=== PATIENT | male | born 1945 | race African-American/Black ===

== ENCOUNTER 2018-03-21 20:47 | Emergency (ER) | payer MEDICARE, SELFPAY ==
[2018-03-21 20:49] VITALS: BP 173/78; PULSE 77; RESP 14; TEMP 36.6; O2SAT 99; BMI 22.1
[2018-03-21] MEDS: Cephalexin 250 MG Capsule 500 MG PO (22:26)
--- NOTE | 2018-03-21 22:26 | ED.DCSUM_ITS ---
- ER Visit Summary Date of Service: 03/21/18 Chief Complaint: [] Swelling in the right and left ankle and feet History of Present Illness: The patient is a 72 M has chronic edema in his lower extremities with significant dry skin. Of last couple weeks his skin is cracked and he said some seepage. He thinks it might be infected. He has been using peroxide Epson salts an unknown cream. He is on hydrochlorothiazide to try to help with chronic lower extremity edema. No redness warmth or pain. Initially was itching so he itched it open. Physical Examination: Vital signs reviewed General: Well-nourished well-developed Head: Normocephalic atraumatic Eyes: Pupils equal round and reactive to light extraocular movements intact ENT: TMs clear no hemotympanum no trauma Neck: Nontender full range of motion Cardiovascular: Regular rate rhythm no murmurs normal S1-S2 Respiratory: No distress clear to auscultation bilaterally chest nontender Abdomen: Soft nontender nondistended normal bowel sounds no masses Back: Nontender no CVA tenderness Extremities: Her lower ankle showed creatinine skin is dry with some mild physiologic seepage. There is no significant cellulitis or infection of the skin. He has 1-2+ edema. Neuro alert oriented cranial nerves II through XII intact normal strength sensation reflexes Test Results: [] Emergency Department Course and Treatment: [] will cover the patient with topical bacitracin and oral back bacitracin topical and a dressing was applied. Given oral Keflex as he does have some suspected early superficial infection. No cellulitis however. He will continue Bactroban and Keflex at home. Will follow-up as an outpatient. He will double up on his water pill raise his legs at night. Treatment Plan: [] Disposition: [] Impression: [] Bilateral cracked skin of the ankles and feet with drainage Bilateral ankle edema This note was generated with [employer] dictation software. It may contain incorrect words, spelling, and punctuation that were not noted in review of the chart prior to signing ED Disposition - Plan for ED Patient: Chief Complaint: Wound Referrals: Toby Roche MD [Primary Care Provider] -
--- NOTE | 2018-03-21 22:26 | ED.DEP ---
ED Disposition - Plan for ED Patient: Disposition: Home or Assisted Living Chief Complaint: Wound Instructions: ED Leg Swelling Bilateral Prescriptions: Cephalexin [Keflex] 500 mg PO TID #21 cap Mupirocin [Bactroban] 1 applic TOPICAL TID 15 Days #1 tube Referrals: Toby Roche MD [Primary Care Provider] -
[2018-03-21 22:28] VITALS: BP 176/80; PULSE 98; RESP 16; O2SAT 96
== END 2018-03-21 22:48 | disposition home or self-care (01) ==
LOC: ED 22:32
PROVIDERS: Emergency Provider Emergency Medicine; Family Provider Internal Medicine; PCP Internal Medicine
DX: R23.4 Changes in skin texture (principal); M25.471 Effusion, right ankle; M25.472 Effusion, left ankle; I44.7 Left bundle-branch block, unspecified; Z85.46 Personal history of malignant neoplasm of prostate; Z86.2 Personal history of diseases of the blood and blood-forming organs and certain disorders involving the immune mechanism; Z90.49 Acquired absence of other specified parts of digestive tract; Z79.899 Other long term (current) drug therapy
CPT/HCPCS: 99283

== ENCOUNTER 2018-04-01 12:21 | Outpatient (RCR) | payer MEDICARE, SELFPAY ==
[2018-04-01 12:42] VITALS: BP 153/87; PULSE 84; RESP 16; TEMP 36.4
--- NOTE | 2018-04-01 18:40 | PCM.WC.HP ---
(1) Bilateral lower extremity edema Status: Acute Current Visit: Yes Code(s): R60.0 - Localized edema History of Present Illness Date of Service: 04/01/18 Chief Complaint: Bilateral lower extremity edemawith seepage. History of Wound: Mr. Stroud presented here due to lower extremity wounds/drainage. He has a history of chronic lower extremity edema and very significant dry skin and was in his stable state of health until about a week prior to presentation when he noted increased drainage from his lower extremities. He was seen at the [facility] emergency room and managed as a case of possible superficial infection. He has had his lower extremities wrapped in gauze however on presentation to the wound center today there was no obvious wound. He does attest to scratching a lot due to his dry skin. He feels well otherwise and denies chills, fever or otherwise feeling of unwell. Past Medical History Allergies/Adverse Reactions: Allergies Sulfa (Sulfonamide Antibiotics) Allergy (Verified 04/01/18 13:15) Rash Home Medications: Ambulatory Orders Medication Instructions Recorded Amlodipine [Norvasc] 5 mg PO DAILY 04/28/17 Doxazosin Mesylate [Cardura] 2 mg PO QHS 06/15/17 Fluticasone 0.05% [Flonase Nasal 2 spray NASAL DAILY 06/15/17 [place]] Hydrochlorothiazide [Hctz] 25 mg PO DAILY 06/15/17 Leuprolide Acetate [Lupron Depot] 30 mg IM QMONTH 06/15/17 Tamsulosin HCl [Flomax] 0.4 mg PO DAILY #30 capsule 06/24/17 predniSONE tablet 20 mg PO BIDCM #6 tablet 06/28/17 Mupirocin [Bactroban] 1 applic TOPICAL TID 15 Days #1 03/21/18 tube - Family History Maternal No pertinent history Smoking Status: Current every day smoker Review of Systems Constitutional: Denies: Anorexia, Chills, Fever, Malaise, Weakness HEENT: Denies: Difficulty Hearing, Difficulty Swallowing Cardiovascular: Denies: Chest Pain, Chest Tightness Respiratory: Denies: Cough, Hemoptysis Gastrointestinal: Denies: Abdominal Pain, Hematemesis, Vomiting Skin: Reports: Dryness. Denies: Jaundice - Physical Exam Vital Signs Temp Pulse Resp BP 97.5 F L 84 16 153/87 H 04/01/18 12:42 04/01/18 12:42 04/01/18 12:42 04/01/18 12:42 General: Alert, Oriented x3, Cooperative, No apparent distress HEENT: Atraumatic, Normocephalic Oral: Moist Mucosa Neck: Supple Lungs: Normal air movement Cardiovascular: Normal S1, Normal S2 Abdomen: Soft, Non Tender Extremities: No cyanosis, Edema Skin: Rash Present, Excoriated Wound Measurements and Assessment WC - Nurse 1 - General Ulcer Measurement Start: 04/01/18 12:42 Freq: Status: Active Protocol: Activity Type Activity Date Activity User E-Sign Co-Sign Detail Recorded Client Recorded Date Recorded By Document 04/01/18 12:42 [facility] [id number] 04/01/18 13:02 [facility] 04/01/18 12:42 Wound Center Nurse 1 [Edema Assessment] -Lower Limb Edema Present Yes -Right Calf (cm) 39.4 -Right Ankle (cm) 23.1 -Left Calf (cm) 39.5 -Left Ankle (cm) 23 WC - Nurse 2 - General Ulcer CM Notes Start: 04/01/18 12:42 Freq: Status: Active Protocol: Activity Type Activity Date Activity User E-Sign Co-Sign Detail Recorded Client Recorded Date Recorded By Document 04/01/18 13:38 DV [id number] 04/01/18 13:39 DV 04/01/18 13:38 Pain Scale: 0-10 Numeric [Pain] -Is Patient Pain Free? Yes Musculoskeletal: No Muscle Wasting Neurological: Cranial nerves II-XII grossly intact Psych/Mental Status: Normal Affect Debridement Note Post-Debridement Measurements/Treatment WC - Nurse 2 - General Ulcer CM Notes Start: 04/01/18 12:42 Freq: Status: Active Protocol: Activity Type Activity Date Activity User E-Sign Co-Sign Detail Recorded Client Recorded Date Recorded By Document 04/01/18 13:38 DV [id number] 04/01/18 13:39 DV 04/01/18 13:38 Pain Scale: 0-10 Numeric Is Patient Pain Free? Yes No debridement was completed today Assessment/Plan Active Problems Bilateral lower extremity edema (Acute) Assessment: Bilateral lower extremity edema. Severe Xeroderma Plan: Mr Stroud has no open wounds at this time. Still has bilateral lower extremity swelling with some seepage. Also severe xeroderma. Mild superficial ulcer for which he presented to the ER most likely due to excoriation from dry skin. Advised to limit irritation of his skin. Adequate hydration on moisturizing also recommended. Advised to follow-up with his PCP/referral to a social worker delinquency prevention. Double layer Tubigrip for edema control. Elevate lower extremity when seated and in bed. Advised to call with any chronic open wounds. Discharged from the wound clinic. This note was generated with [employer] dictation software. It may contain incorrect words, spelling, and punctuation that were not noted in checking the note before signing.
--- NOTE | 2018-04-01 18:48 | HP.PCM_ITS ---
(1) Bilateral lower extremity edema Status: Acute Current Visit: Yes Code(s): R60.0 - Localized edema History of Present Illness Date of Service: 04/01/18 Chief Complaint: Bilateral lower extremity edemawith seepage. History of Wound: Mr. Stroud presented here due to lower extremity wounds/ drainage. He has a history of chronic lower extremity edema and very significant dry skin and was in his stable state of health until about a week prior to presentation when he noted increased drainage from his lower extremities. He was seen at the [facility] emergency room and managed as a case of possible superficial infection. He has had his lower extremities wrapped in gauze however on presentation to the wound center today there was no obvious wound. He does attest to scratching a lot due to his dry skin. He feels well otherwise and denies chills, fever or otherwise feeling of unwell. Past Medical History Allergies/Adverse Reactions: Allergies Sulfa (Sulfonamide Antibiotics) Allergy (Verified 04/01/18 13:15) Rash Home Medications: Ambulatory Orders Medication Instructions Recorded Amlodipine [Norvasc] 5 mg PO DAILY 04/28/17 Doxazosin Mesylate [Cardura] 2 mg PO QHS 06/15/17 Fluticasone 0.05% [Flonase Nasal 2 spray NASAL DAILY 06/15/17 [place]] Hydrochlorothiazide [Hctz] 25 mg PO DAILY 06/15/17 Leuprolide Acetate [Lupron Depot] 30 mg IM QMONTH 06/15/17 Tamsulosin HCl [Flomax] 0.4 mg PO DAILY #30 capsule 06/24/17 predniSONE tablet 20 mg PO BIDCM #6 tablet 06/28/17 Mupirocin [Bactroban] 1 applic TOPICAL TID 15 Days #1 03/21/18 tube - Family History Maternal No pertinent history Smoking Status: Current every day smoker Review of Systems Constitutional: Denies: Anorexia, Chills, Fever, Malaise, Weakness HEENT: Denies: Difficulty Hearing, Difficulty Swallowing Cardiovascular: Denies: Chest Pain, Chest Tightness Respiratory: Denies: Cough, Hemoptysis Gastrointestinal: Denies: Abdominal Pain, Hematemesis, Vomiting Skin: Reports: Dryness. Denies: Jaundice - Physical Exam Vital Signs Temp Pulse Resp BP 97.5 F L 84 16 153/87 H 04/01/18 12:42 04/01/18 12:42 04/01/18 12:42 04/01/18 12:42 General: Alert, Oriented x3, Cooperative, No apparent distress HEENT: Atraumatic, Normocephalic Oral: Moist Mucosa Neck: Supple Lungs: Normal air movement Cardiovascular: Normal S1, Normal S2 Abdomen: Soft, Non Tender Extremities: No cyanosis, Edema Skin: Rash Present, Excoriated Wound Measurements and Assessment WC - Nurse 1 - General Ulcer Measurement Start: 04/01/18 12:42 Freq: Status: Active Protocol: Activity Type Activity Date Activity User E-Sign Co-Sign Detail Recorded Client Recorded Date Recorded By Document 04/01/18 12:42 [facility] [id number] 04/01/18 13:02 [facility] 04/01/18 12:42 Wound Center Nurse 1 [Edema Assessment] -Lower Limb Edema Present Yes -Right Calf (cm) 39.4 -Right Ankle (cm) 23.1 -Left Calf (cm) 39.5 -Left Ankle (cm) 23 WC - Nurse 2 - General Ulcer CM Notes Start: 04/01/18 12:42 Freq: Status: Active Protocol: Activity Type Activity Date Activity User E-Sign Co-Sign Detail Recorded Client Recorded Date Recorded By Document 04/01/18 13:38 DV [id number] 04/01/18 13:39 DV 04/01/18 13:38 Pain Scale: 0-10 Numeric [Pain] -Is Patient Pain Free? Yes Musculoskeletal: No Muscle Wasting Neurological: Cranial nerves II-XII grossly intact Psych/Mental Status: Normal Affect Debridement Note Post-Debridement Measurements/Treatment WC - Nurse 2 - General Ulcer CM Notes Start: 04/01/18 12:42 Freq: Status: Active Protocol: Activity Type Activity Date Activity User E-Sign Co-Sign Detail Recorded Client Recorded Date Recorded By Document 04/01/18 13:38 DV [id number] 04/01/18 13:39 DV 04/01/18 13:38 Pain Scale: 0-10 Numeric Is Patient Pain Free? Yes No debridement was completed today Assessment/Plan Active Problems Bilateral lower extremity edema (Acute) Assessment: Bilateral lower extremity edema. Severe Xeroderma Plan: Mr Stroud has no open wounds at this time. Still has bilateral lower extremity swelling with some seepage. Also severe xeroderma. Mild superficial ulcer for which he presented to the ER most likely due to excoriation from dry skin. Advised to limit irritation of his skin. Adequate hydration on moisturizing also recommended. Advised to follow-up with his PCP/referral to a childbirth and infant care teacher. Double layer Tubigrip for edema control. Elevate lower extremity when seated and in bed. Advised to call with any chronic open wounds. Discharged from the wound clinic. This note was generated with [employer] dictation software. It may contain incorrect words, spelling, and punctuation that were not noted in checking the note before signing.
== END 2018-04-01 23:59 ==
LOC: WC 12:21
PROVIDERS: Family Provider Internal Medicine; PCP Internal Medicine; Visit Provider Internal Medicine
DX: R60.0 Localized edema (principal); F17.200 Nicotine dependence, unspecified, uncomplicated; Q80.9 Congenital ichthyosis, unspecified; M79.89 Other specified soft tissue disorders
CPT/HCPCS: 99213; G0463

== ENCOUNTER 2018-04-24 16:41 | Observation (INO) | payer MEDICARE, SELFPAY ==
[2018-04-24 16:42] VITALS: BP 161/78; PULSE 65; RESP 16; TEMP 36.8; O2SAT 100; BMI 20.7
--- NOTE | 2018-04-24 17:06 | ED.VISSUMM ---
- ER Visit Summary Date of Service: 04/24/18 Chief Complaint: Pain History of Present Illness: The patient is a 72 M with right hip pain. Symptoms started about 5 days ago. They have gotten worse. Denies any other pain. It does not radiate. He denies any injury or inciting events. He denies any associated symptoms like weakness, numbness, change in bowel or bladder, back pain. He never had this before. Pain is so severe, he is unable to ambulate. He took some BC Powder but it is not helping. Patient never had hip or back surgery. No history of infected joints. Physical Examination: Hypertensive but otherwise vital signs unremarkable. Afebrile. Alert and oriented. Head and neck atraumatic. Abdomen soft and nontender. Back unremarkable. Right hip is tender to palpation of the greater trochanter. No warmth or erythema noted. No rash to the hip area. No obvious deformity. He does have some symmetric peripheral edema, but he is neurovascularly intact distally. No shortening, but he does have some pain with range of motion. Test Results: X-rays pending. Emergency Department Course and Treatment: He was treated with [place] while awaiting results. X-rays were negative. CT was done and this was also negative. Pain is better, but he is still unable to ambulate. He will need admission because of this. Labs were performed and he was anemic, 10.6, BUN 19, creatinine 1.37. Urinalysis pending. Dr. Pope will admit Treatment Plan: As above Disposition: Admission Impression: 1. Right hip pain 2. Anemia This note was generated with [employer] dictation software. It may contain incorrect words, spelling, and punctuation that were not noted in review of the chart prior to signing ED Disposition - Plan for ED Patient: Disposition: Home or Assisted Living Chief Complaint: Lower Extremity Injury Referrals: Toby Roche MD [Primary Care Provider] -
--- NOTE | 2018-04-24 17:09 | ED.DCSUM_ITS ---
- ER Visit Summary Date of Service: 04/24/18 Chief Complaint: Pain History of Present Illness: The patient is a 72 M with right hip pain. Symptoms started about 5 days ago. They have gotten worse. Denies any other pain. It does not radiate. He denies any injury or inciting events. He denies any associated symptoms like weakness, numbness, change in bowel or bladder, back pain. He never had this before. Pain is so severe, he is unable to ambulate. He took some BC Powder but it is not helping. Patient never had hip or back surgery. No history of infected joints. Physical Examination: Hypertensive but otherwise vital signs unremarkable. Afebrile. Alert and oriented. Head and neck atraumatic. Abdomen soft and nontender. Back unremarkable. Right hip is tender to palpation of the greater trochanter. No warmth or erythema noted. No rash to the hip area. No obvious deformity. He does have some symmetric peripheral edema, but he is neurovascularly intact distally. No shortening, but he does have some pain with range of motion. Test Results: X-rays pending. Emergency Department Course and Treatment: He was treated with [place] while awaiting results. X-rays were negative. CT was done and this was also negative. Pain is better, but he is still unable to ambulate. He will need admission because of this. Labs were performed and he was anemic, 10.6, BUN 19, creatinine 1.37. Urinalysis pending. Dr. Pope will admit Treatment Plan: As above Disposition: Admission Impression: 1. Right hip pain 2. Anemia This note was generated with [employer] dictation software. It may contain incorrect words, spelling, and punctuation that were not noted in review of the chart prior to signing ED Disposition - Plan for ED Patient: Disposition: Home or Assisted Living Chief Complaint: Lower Extremity Injury Referrals: Toby Roche MD [Primary Care Provider] -
[2018-04-24] MEDS: HYDROcodone Bitartrate/Apap 5/325 Tablet PO (17:11)
--- NOTE | 2018-04-24 17:17 | RAD_ITS ---
STUDY: X-RAY - PELVIS AND RIGHT HIP REASON FOR EXAM: Male, 72 years old. Pain of the right hip. The TECHNIQUE: Radiological exam, hip, unilateral, with pelvis when performed; 2 or 3 views. COMPARISON: None. FINDINGS: There is a non-specific bowel gas pattern. Normal visualized soft tissue structures. Normal bilateral iliac wings, sacroiliac joints and visualized sacrum. Normal bilateral superior and inferior pubic rami. Normal pubic symphysis. Normal bilateral ischial tuberosities. Normal visualized femoral head. Normal acetabulum. There is mild articular joint space narrowing of the hip. RAD/Hip 2-3 Views with Pelvis IMPRESSION: Mild degenerative narrowing of the right hip without other acute bone or joint findings of the pelvis or hip. Electronically Signed: Galina Patel MD at 17:41 EDT , Service support ,
--- NOTE | 2018-04-24 18:02 | CT_ITS ---
STUDY: CT HIP WITHOUT CONTRAST: RIGHT REASON FOR EXAM: Male, 72 years old. Unable to walk secondary to right hip pain. RADIATION DOSAGE (If Supplied By Facility): CTDIvol = ( 17.08 ) mGy, DLP = ( 439.10 ) mGycm. Individualized dose optimization techniques were used for this CT.? TECHNIQUE: Transaxial imaging with sagittal and coronal reconstructions. COMPARISON: Right hip and pelvis films of April 24, 2018 FINDINGS: The included right hemipelvis is intact. The proximal femur is intact without a fracture, osteolytic or blastic bone lesion. Minimal marginal osteophytosis of the femoral head and mild joint narrowing. Negative for evidence of avascular necrosis or osteochondral irregularity. Negative for surrounding soft tissue or muscular abnormality other than moderate vascular calcifications. 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 Electronically Signed: Galina Patel MD at 18:57 EDT , Service support ,
[2018-04-24 18:36] LABS: Absolute Lymphocyte Count 0.69 X10^3/ul (0.83-4.51); Absolute Neutrophil Count 2.9 X10^3/uL (2.0-7.7); Basophil# 0.01 X10^3/uL; Basophil% 0.3 % (0-1); Eosinophil# 0.05 X10^3/uL; Eosinophils% 1.3 % (0-5); Hemoglobin 10.6 g/dl (13.0-16.5); Lymphocyte # 0.69 X10^3/ul (4.0); Lymphocyte % 18.2 % (19-41); Mean Corp Hgb Conc 32.1 g/gl (32-36); Mean Corpuscular Hgb 25.2 pg (27.0-32.0); Mean Corpuscular Volume 78.4 fL (80-94); Mean Platelet Vol. 9.8 fl (6.2-12.0); Monocyte# 0.19 X10^3/uL; Neutrophil # 2.85 X10^3/uL (2.7-7.7); Neutrophil % 75.2 % (47-70); POSITIVE COUNT NO; POSITIVE DIFFERENTIAL NO; POSITIVE MORPHOLOGY NO; Platelet Count 187 K/mm3 (150-450); RBC Distribution Width CV 17.4 % (11.6-14.6); RBC Distribution Width SD 49.6 fl (35.1-43.9); Red Blood Count 4.21 M/mm3 (4.6-6.2); White Blood Count 3.8 K/mm3 (4.4-11.0)
[2018-04-24 18:40] LABS: International Normalized Ratio 1.2; Prothrombin Time (Protime)PT. 15.1 SECONDS (11.7-14.9)
[2018-04-24 18:41] LABS: Partial Thromboplast Time 26.9 Seconds (24.1-36.2)
[2018-04-24 18:45] LABS: Anion Gap 4 (5-15); BUN 19 mg/dL (7-18); BUN/Creat Ratio 13.9 RATIO (10-20); Calcium,Total 8.6 mg/dL (8.5-10.1); Chloride 112 mmol/L (98-107); Creatinine, Serum 1.37 mg/dL (0.70-1.30); EST Glomerular Filtration Rate 54 mL/min (>60); Est Glom Filt Rate - Afr Amer 66 mL/min (>60); Estimated Creatinine Clearance 54.72 ml/min; Glucose 97 mg/dL (74-106); Potassium 4.8 mmol/L (3.5-5.1); Sodium Level 139 mmol/L (136-145)
--- NOTE | 2018-04-24 18:49 | HP.PCM_ITS ---
Problem List (1) CKD (chronic kidney disease) stage 2, GFR 60-89 ml/min Status: Chronic Comment: Baseline Cr 1.3 (2) HTN (hypertension) Status: Chronic Qualifiers: Hypertension type: essential hypertension Qualified Code(s): I10 - Essential (primary) hypertension (3) HLD (hyperlipidemia) Status: Chronic Qualifiers: Hyperlipidemia type: unspecified Qualified Code(s): E78.5 - Hyperlipidemia , unspecified (4) Tobacco use Status: Chronic (5) Hip pain, acute Status: Acute Qualifiers: Laterality: right Qualified Code(s): M25.551 - Pain in right hip (6) Anemia Status: Chronic Qualifiers: Anemia type: unspecified type Qualified Code(s): D64.9 - Anemia, unspecified (7) Bilateral lower extremity edema Status: Chronic (8) Colon polyps Status: Chronic Qualifiers: Colon location: unspecified part of colon Inflammatory colon polyp complication status: unspecified (9) Prostate cancer Status: Chronic History of Present Illness Date of Admission: 04/24/18 Chief Complaint: Intractable R Hip Pain The patient is a 72 y/o M w/ PMHx: Chronic BL LE Lymphedema, Chronic Venous Stasis Dermatitis, CKD stage II (baseline Cr 1.3), GERD, HTN, HLD, Tobacco use, Hx Prostate CA treated with radiation therapy and hormone deprivation therapy ( Lupron shots) w/ BPH, Hx Numerous Tubular Adenomas of the Colon s/p R colectomy and prior polypectomy, Chronic Normocytic Anemia (baseline Hgb 10-11 range) who presents to the [facility] ED on 04/24/18 with onset ~ 5 days prior intractable R hip pain, inability to place weight without severe focal pain in the hip and decreased concurrent ROM with attempts to use a walker; however, further decline and debility secondary to worsening severe, sharp pain in the R hip. He denies any recent falls or trauma. In the ED work-up included T 98.3, heart rate 161/78, respiratory rate 16, 100% room air, CBC with WBC 3.8, hemoglobin 10.6, platelet 187 without market shift, coags with PT 15.1, INR 1.2, PTT 26.9, BMP with chloride 112, BUN/Cr 19/1.37, pending urinalysis, plain film of the right hip and pelvis with mild degenerative narrowing of the right hip without any acute obvious bone or joint findings however given severity of presentation and concerning examination CT of the hip is pending for possible suspected right hip fracture. In the ED patient administered narcotic therapies and despite this had ongoing pain, especially with any attempted weight placement or ROM testing. Past Medical History Past Medical History (Chronic Problems): Chronic Problems Bilateral lower extremity edema (Chronic) CKD (chronic kidney disease) stage 2, GFR 60-89 ml/min (Chronic) Baseline Cr 1.3 HTN (hypertension) (Chronic) HLD (hyperlipidemia) (Chronic) Tobacco use (Chronic) Prostate cancer (Chronic) Anemia (Chronic) Colon polyps (Chronic) Allergies Sulfa (Sulfonamide Antibiotics) Allergy (Verified 04/24/18 16:45) Rash Home Medications: Ambulatory Orders Medication Instructions Recorded Amlodipine [Norvasc] 5 mg PO DAILY 04/28/17 Doxazosin Mesylate [Cardura] 2 mg PO QHS 06/15/17 Fluticasone 0.05% [Flonase Nasal 2 spray NASAL DAILY 06/15/17 [place]] Hydrochlorothiazide [Hctz] 25 mg PO DAILY 06/15/17 Leuprolide Acetate [Lupron Depot] 30 mg IM QMONTH 06/15/17 Surgical History: - - R colectomy, L inguinal hernia repair, ? Stomach/gastric ulcer surgery. Psychiatric History: No pertinent psych hx Lives: Alone Smoking Status: Current every day smoker - 1 ppd. Tobacco Use: Cigarettes Alcohol: Sober Drugs: None - *Family History Maternal History Items: Cancer Paternal History Items: Cancer Review of Systems Constitutional: Reports: Malaise, Weakness, Fatigue. Denies: Chills, Fever, Weight Change HEENT: Denies: Head Aches, Sinus Congestion, Sinus Drainage Cardiovascular: Denies: Chest Pain, Palpitations Respiratory: Denies: Cough, Shortness of breath at rest, Sputum production Gastrointestinal: Denies: Abdominal Pain, Nausea, Vomiting Genitourinary: Denies: Dysuria Musculoskeletal: Reports: Joint stiffness, Joint Tenderness, Leg Pain. Denies: Joint Pain Skin: Reports: Rash, Skin Changes. Denies: Wounds Neurological: Denies: Numbness, Tingling, Focal weakness Psychiatric: Denies: Anxiety, Depression, Homicidal Ideations, Suicidal Ideations Hematologic/ Lymphatic: Reports: Anemia. Denies: Easy Bruising, Easy Bleeding VTE Information - Inpt Only VTE Present on Admission: No VTE Mechan Device Prophylaxis: SCD's VTE Pharm Prophylaxis ordered?: Yes Subjective: Seated upright in the ED bed, fatigued appearance, notes ongoing R hip pain, severe. Objective: Physical Examination: General: awake, alert, oriented x 3 and cooperative, seated upright in bed, fatigued appearance, notes ongoing R hip pain, primarily with movement and any attempted weight. Skin: normal color, turgor, no icterus, cyanosis except BL LE chronic venous stasis skin changes and dermatitis, also dermatitis noted on the upper extremities (? psoriasis). HEENT: AT/NC, EOMI, PERRLA, mildly dry MM, no carotid bruits or JVD noted. Lungs: Diminished BS BL, > bases, mild effort, no rales, ronchi or wheezing. Heart: Regular rate and rhythm; no gallop, rub audible. Abdomen: soft, thin/cachectic appearing habitus, NTTP, ND, normal BS, no marked HSM. Extremities: no cyanosis, clubbing, BL LE mild ankle edema, not marked, see skin for further findings, R hip palpation without pain but with any ROM, rotation internal and external severe onset pain. Neurological: patient awake, alert, oriented x 3; cognitive function intact; pupils equally reactive to light and accomodation; cranial nerves II-XII grossly normal, moving all 4 extremities except severely limited RLE secondary to severity of pain, strength accordingly severely globally decreased. Psychiatric: affect appears flat, no acute evidence of depressive or anxiety feelings. - Physical Exam Vital Signs Temp Pulse Resp BP Pulse Ox 98.3 F 65 16 161/78 H 100 04/24/18 16:42 04/24/18 16:42 04/24/18 16:42 04/24/18 16:42 04/24/18 16:42 Oxygen Delivery Method Room Air Weight: 175 lb Body Mass Index (BMI) 20.7 Laboratory Tests Past 24 Hrs 04/24/18 04/24/18 04/24/18 18:20 18:20 18:20 WBC Pending RBC Pending Hgb Pending Hct Pending MCV Pending MCH Pending MCHC Pending RDW Pending RDW Differential Pending Plt Count Pending Neut % (Auto) Pending Absolute Neuts (auto) Pending Total Counted Pending PT Pending INR Pending APTT Pending Sodium Pending Potassium Pending Chloride Pending Carbon Dioxide Pending Anion Gap Pending BUN Pending Creatinine Pending Est GFR (MDRD) Af Amer Pending Est GFR (MDRD) Non-Af Pending BUN/Creatinine Ratio Pending Glucose Pending Calcium Pending Assessment/Plan All Active Problems Hip pain, acute (Acute) Urinary retention (Acute) The patient is a 72 y/o M w/ PMHx: Chronic BL LE Lymphedema, Chronic Venous Stasis Dermatitis, CKD stage II, GERD, HTN, HLD, Tobacco use, Hx Prostate CA treated with radiation therapy and hormone deprivation therapy w/ BPH, Hx Numerous Tubular Adenomas of the Colon s/p R colectomy and prior polypectomy, Chronic Normocytic Anemia who presents to the [facility] ED on 04/24/18 with onset ~ 5 days prior intractable R hip pain, inability to place weight without severe focal pain in the hip and decreased concurrent ROM with attempts to use a walker ; however, further decline and debility secondary to worsening severe, sharp pain in the R hip. especially with any attempted weight placement or ROM testing. (1) General debility, R Severe hip pain, Suspect Underlying Fracture: ED plain film of the right hip and pelvis with mild degenerative narrowing of the right hip without any acute obvious bone or joint findings however given severity of presentation and concerning examination CT of the hip. Orthopedic surgery will be consulted. Will admit to [facility], maintain NPO at midnight pending CT Hip results and Orthopedic evaluation as suspect hip fracture, continue gentle IVFs, Mag level, UA, monitor I/Os, frequent positioning, fall precautions. Pain, anti- emetic regimen. PT/OT following operative intervention. CM consulted for discharge planning. Will obtain EKG, CXR given tobacco use history. Per [facility] Perioperative Cardiac Risk Index given > METS, age 72, Cr pending, baseline 1.3, independent living status, ASA 3 for orthopedic intervention, estimated risk of perioperative myocardial infarction or cardiac arrest low risk. Will as noted obtain EKG, CXR and if unremarkable if CT Hip notable for fracture would plan to transition to OR per Orthopedic surgery discretion. (2) Hypertension: Continue home regimen including norvasc, HCTZ, cardura. Given BL LE edema history, norvasc also perhaps not best regimen choice, unclear if previously tried ACEI. PRN hydralazine. (3) Hyperlipidemia: Not on statin regimen, defer to outpatient given acute presentation. (4) Tobacco Abuse: Encouraged cessation, inpatient consultation per RT, NR if desired. (5) Hx Prostate CA: Patient treated with radiation therapy and hormone deprivation therapy (Lupron shots) w/ BPH. (6) Hx Numerous Tubular Adenomas: Notable colonic polyp history, s/p R colectomy and prior polypectomies. (7) Chronic Normocytic Anemia: Admission Hgb 10.6, stable, baseline Hgb 10-11 range. (8) Chronic BL LE Lymphedema w/ Chronic Venous Stasis Dermatitis: Notable dry skin, will consult Wound RN, elevate as able, place snug sherron wraps. (9) CKD stage II: Admission BUN/Cr 19/1.37, stable, baseline Cr 1.3. (10) Moderate to Severe Protein-Calorie Malnutrition: Evidenced per habitus, muscle and fat loss, nutrition consulted, supplementation. (11) GERD: PPI. (12) DVT Prophylaxis: SCDs, heparin. Code Visit Inpatient E&M: 61133 Init Hosp L3
[2018-04-24 19:33] VITALS: BP 155/70; PULSE 50; RESP 16; O2SAT 100
[2018-04-24 20:14] VITALS: BMI 19.9
[2018-04-24 20:39] VITALS: BP 161/81; PULSE 67; RESP 20; TEMP 36.5; O2SAT 100
[2018-04-24 21:24] LABS: Ferritin 25 ng/mL (26-388); Iron 35 ug/dL (65-175); Iron Binding Capacity,Total 321 ug/dL (250-450); PERCENT IRON SATURATION 10.9 % (15.0-55.0)
--- NOTE | 2018-04-24 21:36 | NURSING ---
from Radiology states that there was a CXR ordered but it was labeled preop. states that there is no fracture on the xray so there would be no need for surgery so therefore he did not go forward with the CXR. He had talked to Dr. Brown about this situation and Dr. Brown was in agreement. Ben TANNER also aware.
[2018-04-24 23:45] LABS: Bacteria 0 SEEN /hpf (None Seen); Mucous, Urine 0 SEEN /hpf (<or=2+); Red Blood Cells-Urine 0 SEEN /hpf (0-5); Squamous Epithelial Cells - UA 0 SEEN /hpf (0-5); White Blood Cells 0 SEEN /hpf (0-5)
[2018-04-24] MEDS: Heparin Injection (Vial) 5,000 UNIT/ML VIAL 5000 UNIT SC (23:50)
[2018-04-24] MEDS: 0.9% Normal Saline 1,000 ML 100 ML IV (23:50)
[2018-04-24] MEDS: Doxazosin 1 MG Tablet 2 MG PO (23:51)
[2018-04-24] MEDS: Docusate Sodium 100 MG Capsule PO (23:51)
[2018-04-25 00:02] LABS: Color, Urine Yellow (Yellow); Glucose, Dipstick Normal (Normal); Ketone-Dipstick Negative (Negative); Leukocyte Esterase-Dipstick 25 /ul (Negative); Nitrite-Dipstick Negative (Negative); Occult Blood-Urine Negative /ul (Negative); Protein-Dipstick Negative (Negative); Specific Gravity, Urine 1.015 (1.002-1.030); Urine Bilirubin Dipstick Negative (Negative); Urine Clarity Clear (Clear); Urine Urobilinogen Normal (Normal)
[2018-04-25 03:00] VITALS: BP 142/70; PULSE 62; RESP 18; TEMP 36.8; O2SAT 100
[2018-04-25 05:59] LABS: Absolute Lymphocyte Count 0.96 X10^3/ul (0.83-4.51); Absolute Neutrophil Count 1.6 X10^3/uL (2.0-7.7); Eosinophil# 0.13 X10^3/uL; Eosinophils% 4.3 % (0-5); Hematocrit 32.8 % (40-54); Hemoglobin 10.4 g/dl (13.0-16.5); Lymphocyte # 0.96 X10^3/ul (4.0); Lymphocyte % 31.6 % (19-41); Mean Corp Hgb Conc 31.7 g/gl (32-36); Mean Corpuscular Hgb 24.9 pg (27.0-32.0); Mean Corpuscular Volume 78.7 fL (80-94); Monocyte# 0.35 X10^3/uL; Monocyte% 11.5 % (0-10); Neutrophil % 52.6 % (47-70); Platelet Count 195 K/mm3 (150-450); RBC Distribution Width CV 17.6 % (11.6-14.6); RBC Distribution Width SD 50.4 fl (35.1-43.9); Red Blood Count 4.17 M/mm3 (4.6-6.2)
[2018-04-25 06:22] LABS: Anion Gap 5 (5-15); BUN 19 mg/dL (7-18); BUN/Creat Ratio 17.1 RATIO (10-20); Calcium,Total 8.3 mg/dL (8.5-10.1); Chloride 113 mmol/L (98-107); Creatinine, Serum 1.11 mg/dL (0.70-1.30); EST Glomerular Filtration Rate 69 mL/min (>60); Est Glom Filt Rate - Afr Amer 84 mL/min (>60); Estimated Creatinine Clearance 64.83 ml/min; Glucose 102 mg/dL (74-106); Potassium 4.1 mmol/L (3.5-5.1); Sodium Level 142 mmol/L (136-145)
[2018-04-25 06:42] LABS: POSITIVE COUNT NO; POSITIVE DIFFERENTIAL NO; POSITIVE MORPHOLOGY NO
[2018-04-25 08:16] VITALS: BP 158/99; PULSE 62; RESP 18; TEMP 36.7; O2SAT 100
[2018-04-25 08:20] VITALS: PULSE 60
[2018-04-25] MEDS: Multivitamins,Ther W-Minerals Tablet 1 TABLET PO (08:25)
[2018-04-25] MEDS: Aspirin 81 MG TAB.CHEW PO (08:25)
--- NOTE | 2018-04-25 08:35 | MRI_ITS ---
STUDY: MRI RIGHT HIP REASON FOR EXAM: Male, 72 years old. Severe right hip pain. TECHNIQUE: Standardized fat and water weighted pulse sequences were obtained in all 3 orthogonal planes. COMPARISON: CT April 24, 2018. FINDINGS: There is mild articular narrowing of the hip joint, with less than 50% loss of the hyaline cartilage. There is lateral osteoarthritic spurring of the acetabular rim. Normal labrum. Normal femoral head. Normal femoral neck and intratrochanteric region. Tendinosis of the distal gluteus minimus and medius. Normal iliopsoas tendon and distal insertion. There is no trochanteric, iliopsoas or iliopectineal bursitis. Normal superior and inferior pubic rami. Normal pubic symphysis. Normal ischial tuberosity. Normal origin of the hamstring tendons. Normal visualized iliac wing, sacroiliac joint, and sacral ala. There is a large right hydrocele. There is moderate left hydrocele. Enlarged prostate gland impressing upon the urinary bladder. No dilated loops of bowel are seen. MRI/Lower Ext Joint Only (Routine) IMPRESSION: No fracture or avascular necrosis. Mild degenerative change. Right greater than left hydroceles. Electronically Signed: Wilfred Deras MD at 12:46 EDT , Service support ,
--- NOTE | 2018-04-25 08:37 | RAD_ITS ---
STUDY: X-RAY - LUMBAR SPINE REASON FOR EXAM: Male, 72 years old. Pain. TECHNIQUE: 3 view(s) of the lumbar spine were obtained. COMPARISON: None FINDINGS: Normal lumbar lordosis. There is no substantial scoliosis. There is a normal alignment of the vertebrae. There is multilevel endplate spondylosis of the lumbar vertebrae. Disc space narrowing at L5-S1. There is no demonstrated fracture. There are multiple regions of postoperative change in the soft tissues. RAD/Lumbar Spine 2 or 3 Views IMPRESSION: Degenerative change. No fracture seen. Postoperative changes of the abdomen. Electronically Signed: Wilfred Deras MD at 13:51 EDT , Service support ,
--- NOTE | 2018-04-25 08:38 | PCM.CONS.GEN ---
Reason for Consult Date of Consultation: 04/25/18 Reason for Consultation: Intractable right hip pain History of Present Illness: The patient is a 72 year old M who complains of intractable right-sided hip pain. He has been unable to place weight on his leg and unable to ambulate because of the pain. He states that the pain is located in his right hip with some mild pain in his groin and will have some pain that shoots into his leg. He also complains of some back pain and has a remote back injury back in 1977. He states that he also has some numbness in his right great toe. He denies any recent trauma or fall. His extreme difficulty raising his leg. He states that the pain is debilitating and worsening Past Medical History Past Medical History (Chronic Problems): Chronic Problems Bilateral lower extremity edema (Chronic) CKD (chronic kidney disease) stage 2, GFR 60-89 ml/min (Chronic) Baseline Cr 1.3 HTN (hypertension) (Chronic) HLD (hyperlipidemia) (Chronic) Tobacco use (Chronic) Prostate cancer (Chronic) Anemia (Chronic) Colon polyps (Chronic) Allergies Sulfa (Sulfonamide Antibiotics) Allergy (Verified 04/24/18 16:45) Rash Home Medications: Ambulatory Orders Medication Instructions Recorded Amlodipine [Norvasc] 10 mg PO DAILY 04/28/17 Doxazosin Mesylate [Cardura] 2 mg PO QHS 06/15/17 Fluticasone 0.05% [Flonase Nasal 2 spray NASAL DAILY 06/15/17 [place]] Leuprolide Acetate [Lupron Depot] 30 mg IM QMONTH 06/15/17 Hydroxyzine HCl [Hydroxyzine HCl] 25 mg PO Q6H PRN PRN 04/24/18 Surgical History: - - R colectomy, L inguinal hernia repair, ? Stomach/gastric ulcer surgery. Psychiatric History: No pertinent psych hx Lives: Alone Smoking Status: Current every day smoker Tobacco Use: Cigarettes Alcohol: Sober Drugs: None - *Family History Maternal History Items: Cancer Paternal History Items: Cancer Review of Systems Constitutional: Denies: Chills, Fever, Weight Change HEENT: Denies: Head Aches, Sinus Congestion, Sinus Drainage Cardiovascular: Denies: Chest Pain, Palpitations Respiratory: Denies: Cough, Shortness of breath at rest, Sputum production Gastrointestinal: Denies: Abdominal Pain, Nausea, Vomiting Musculoskeletal: Reports: - - Per history of present illness Skin: Reports: Dryness - Physical Exam General: Alert, Oriented x3, Cooperative HEENT: Atraumatic, PERRLA, EOMI, Normocephalic Neck: Supple Lungs: Normal air movement Cardiovascular: Regular rate Abdomen: Soft, Non Tender Skin: - - Significant dry skin Musculoskeletal: - - Pain with logrolling of the hip. Pain with straight leg raise. Pain with passive range of motion of the hip. Shannan's and Freiberg's are both positive. He is neurovascularly intact. He is able to wiggle all his toes. Ankle dorsiflexion plantarflexion strength are normal. Neurological: Cranial nerves II-XII grossly intact Vital Signs Temp Pulse Resp BP Pulse Ox 98.1 F 62 18 158/99 H 100 04/25/18 08:16 04/25/18 08:16 04/25/18 08:16 04/25/18 08:16 04/25/18 08:16 Oxygen Delivery Method Room Air Weight: 167 lb 15.876 oz Body Mass Index (BMI) 19.9 Intake and Output for Last 24 Hours 04/23/18 04/24/18 04/25/18 23:59 23:59 23:59 Intake Total 1268 / 1268 Output Total 1175 / 1175 Balance 93 / 93 Laboratory Tests Past 24 Hrs 04/24/18 04/25/18 04/25/18 23:40 05:27 05:27 WBC 3.0 L RBC 4.17 L Hgb 10.4 L Hct 32.8 L MCV 78.7 L MCH 24.9 L MCHC 31.7 L RDW 17.6 H RDW Differential 50.4 H Plt Count 195 MPV 10.0 Immature Gran % (Auto) 0.000 Neut % (Auto) 52.6 Lymph % (Auto) 31.6 [place] % (Auto) 11.5 H Eos % (Auto) 4.3 Baso % (Auto) 0.0 Absolute Neuts (auto) 1.6 L Absolute Lymphs (auto) 0.96 Total Counted Not Reportable Sodium Potassium Chloride Carbon Dioxide Anion Gap BUN Creatinine Estim Creat Clear Calc Est GFR (MDRD) Af Amer Est GFR (MDRD) Non-Af BUN/Creatinine Ratio Glucose Calcium Vitamin B12 Pending Urine Color Yellow Urine Clarity Clear Urine pH 6.0 Ur Specific [place] 1.015 Urine Protein Negative Urine Glucose (UA) Normal Urine Ketones Negative Urine Occult Blood Negative Urine Nitrite Negative Urine Bilirubin Negative Urine Urobilinogen Normal Ur Leukocyte Esterase 25 H Urine RBC 0 SEEN Urine WBC 0 SEEN Ur Squamous Epith Cells 0 SEEN Urine Bacteria 0 SEEN Urine Mucus 0 SEEN 04/25/18 05:27 WBC RBC Hgb Hct MCV MCH MCHC RDW RDW Differential Plt Count MPV Immature Gran % (Auto) Neut % (Auto) Lymph % (Auto) [place] % (Auto) Eos % (Auto) Baso % (Auto) Absolute Neuts (auto) Absolute Lymphs (auto) Total Counted Sodium 142 Potassium 4.1 Chloride 113 H Carbon Dioxide 24.0 Anion Gap 5 BUN 19 H Creatinine 1.11 Estim Creat Clear Calc 64.83 Est GFR (MDRD) Af Amer 84 Est GFR (MDRD) Non-Af 69 BUN/Creatinine Ratio 17.1 Glucose 102 Calcium 8.3 L Vitamin B12 Urine Color Urine Clarity Urine pH Ur Specific [place] Urine Protein Urine Glucose (UA) Urine Ketones Urine Occult Blood Urine Nitrite Urine Bilirubin Urine Urobilinogen Ur Leukocyte Esterase Urine RBC Urine WBC Ur Squamous Epith Cells Urine Bacteria Urine Mucus Assessment/Plan All Active Problems Hip pain, acute (Acute) Urinary retention (Acute) Intractable right hip pain Low back pain with right radiculopathy I personally reviewed patient's x-rays as well as a CT scan of his right hip. These are both negative for acute abnormality. Clinically he appears to have right radiculopathy from his back. Patient however does have intractable pain in his groin which may be generated from an occult femoral neck fracture. I do feel that it would be prudent to investigate this further with an MRI of his hip. I am also going to obtain x-rays of his lumbar spine to assess for spondylosis. If the MRI of his hip is negative we will mobilize with therapy and recommended symptomatic treatment. Patient does live at home alone and will likely require placement
--- NOTE | 2018-04-25 08:49 | PCM.PN.HOSP ---
Subjective: The patient is a 72 y/o M w/ PMHx: Chronic BL LE Lymphedema, Chronic Venous Stasis Dermatitis, CKD stage II, GERD, HTN, HLD, Tobacco use, Hx Prostate CA treated with radiation therapy and hormone deprivation therapy w/ BPH, Hx Numerous Tubular Adenomas of the Colon s/p R colectomy and prior polypectomy, Chronic Normocytic Anemia who presents to the [facility] ED on 04/24/18 with onset ~ 5 days prior intractable R hip pain, inability to place weight without severe focal pain in the hip and decreased concurrent ROM with attempts to use a walker; however, further decline and debility secondary to worsening severe, sharp pain in the R hip. especially with any attempted weight placement or ROM testing. ED plain film of the right hip and pelvis with mild degenerative narrowing of the right hip without any acute obvious bone or joint findings however given severity of presentation and concerning examination, CT of the hip obtained with no evidence of acute fracture. Orthopedic surgery consulted, noted possibly secondary to back pain with radiculopathy to the right lower extremity however very focal and still concerning for possible occult fracture therefore lumbar film as well as MRI of the right lower extremity and hip ordered per Dr. Starks, pending. CXR pending this AM, not performed evening prior. Maintain frequent positioning, fall precautions, NWB until MRI obtained. Pain, anti-emetic regimen. PT, OT, CM once cleared for activity pending further imaging as noted. Patient overnight with no acute events per self and per nursing report. He notes ongoing discomfort to the right hip primarily with rotational attempts of the hip but has not placed any weight secondary to bed rest until further assessment for possible hip fracture. Reviewed CT scan with him that did not demonstrate any fracture but still concerning appearance with evaluation per orthopedic surgery this morning and giving ongoing pain possibly right radiculopathy from his back however concern for an occult femoral neck fracture therefore MRI of the hip pending. Patient denies fevers, chills, nausea, emesis, abdominal pain, chest pain or dyspnea. Objective: Physical Examination: General: awake, alert, oriented x 3 and cooperative, laying in the bed, NAD. Skin: normal color, turgor, no icterus, cyanosis except BL LE chronic venous stasis skin changes and dermatitis, also dermatitis noted on the upper extremities. HEENT: AT/NC, EOMI, PERRLA, improved MMM. Lungs: Diminished BS BL, > bases, mild effort, no rales, ronchi or wheezing. Heart: Regular rate and rhythm; no gallop, rub audible. Abdomen: soft, thin/cachectic appearing habitus, NTTP, ND, normal BS. Extremities: no cyanosis, clubbing, BL LE mild ankle edema, not marked, see skin for further findings, R hip remains non-painful with palpation, pain with any ROM, pain w/ SLR. Neurological: patient awake, alert, oriented x 3; cognitive function intact; pupils equally reactive to light and accomodation; cranial nerves II-XII grossly normal, moving all 4 extremities except severely limited RLE secondary to severity of pain, strength accordingly severely globally decreased. Psychiatric: affect appears improved, normal, no acute evidence of depressive or anxiety feelings. Vitals/I&O's: Vital Signs Temp Pulse Resp BP Pulse Ox 98.1 F 62 18 158/99 H 100 04/25/18 08:16 04/25/18 08:16 04/25/18 08:16 04/25/18 08:16 04/25/18 08:16 Oxygen Delivery Method Room Air Weight: 167 lb 15.876 oz Body Mass Index (BMI) 19.9 Intake and Output for Last 24 Hours 04/23/18 04/24/18 04/25/18 23:59 23:59 23:59 Intake Total 1268 / 1268 Output Total 1175 / 1175 Balance / Laboratory Results 04/24/18 23:40: Urine Color Yellow, Urine Clarity Clear, Urine pH 6.0, Ur Specific [place] 1.015, Urine Protein Negative, Urine Glucose (UA) Normal, Urine Ketones Negative, Urine Occult Blood Negative, Urine Nitrite Negative, Urine Bilirubin Negative, Urine Urobilinogen Normal, Ur Leukocyte Esterase 25 H, Urine RBC 0 SEEN, Urine WBC 0 SEEN, Ur Squamous Epith Cells 0 SEEN, Urine Bacteria 0 SEEN, Urine Mucus 0 SEEN 04/25/18 05:27: Vitamin B12 Pending 04/25/18 05:27: WBC 3.0 L, RBC 4.17 L, Hgb 10.4 L, Hct 32.8 L, MCV 78.7 L, MCH 24.9 L, MCHC 31.7 L, RDW 17.6 H, RDW Differential 50.4 H, Plt Count 195, MPV 10.0, Immature Gran % (Auto) 0.000, Neut % (Auto) 52.6, Lymph % (Auto) 31.6, [place] % (Auto) 11.5 H, Eos % (Auto) 4.3, Baso % (Auto) 0.0, Absolute Neuts (auto) 1.6 L, Absolute Lymphs (auto) 0.96, Total Counted Not Reportable 04/25/18 05:27: Sodium 142, Potassium 4.1, Chloride 113 H, Carbon Dioxide 24.0, Anion Gap 5, BUN 19 H, Creatinine 1.11, Estim Creat Clear Calc 64.83, Est GFR (MDRD) Af Amer 84, Est GFR (MDRD) Non-Af 69, BUN/Creatinine Ratio 17.1, Glucose 102, Calcium 8.3 L Current Medications Acetaminophen (Tylenol) 650 mg PO Q6H PRN PRN PRN Reason: Mild Pain (scale 0-3)/T>100.7 Al Hydroxide/Mg Hydroxide (Mylanta Ii) 30 ml PO Q6H PRN PRN PRN Reason: Gastric burning Albuterol Sulfate (Ventolin Aerosols) 2.5 mg INHALATION Q2H PRN PRN PRN Reason: dyspnea, wheezing Amlodipine Besylate (Norvasc) 10 mg PO DAILY [facility] Aspirin (Aspirin, Baby) 81 mg PO DAILY@0800 [facility] Last Admin: 04/25/18 08:25 Dose: 81 mg Docusate Sodium (Colace) 100 mg PO BID [facility] Last Admin: 04/24/18 23:51 Dose: 100 mg Doxazosin Mesylate (Cardura) 2 mg PO QHS [facility] Last Admin: 04/24/18 23:51 Dose: 2 mg Fluticasone Propionate (Flonase Nasal [place]) 2 spray NASAL DAILY [facility] Heparin Sodium (Porcine) (Heparin Na) 5,000 unit SC Q12 [facility] Last Admin: 04/24/18 23:50 Dose: 5,000 u Hydralazine HCl (Apresoline Iv) 10 mg IV Q4H PRN PRN PRN Reason: SBP > 160 Hydroxyzine Pamoate (Vistaril Pamoate Capsule) 25 mg PO Q6H PRN PRN PRN Reason: ITCHING Sodium Chloride () 1,000 mls @ 100 mls/hr IV .Q10H [facility] Last Admin: 04/24/18 23:50 Dose: 100 mls/hr Magnesium Hydroxide (Milk Of Magnesia) 30 ml PO DAILY PRN PRN PRN Reason: Constipation Morphine Sulfate () 2 - 4 mg IV Q3H PRN PRN PRN Reason: Severe Pain (pain scale 6-10) Morphine Sulfate () 1 - 2 mg IV Q4H PRN PRN PRN Reason: Moderate Pain (pain scale 4-5) Multivitamins/Minerals (Multivitamin With Minerals) 1 tablet PO DAILYCM [facility] Last Admin: 04/25/18 08:25 Dose: 1 tablet Ondansetron HCl (Zofran) 4 mg IV Q8H PRN PRN PRN Reason: NAUSEA Oxycodone HCl (Oxyir) 5 mg PO Q4H PRN PRN PRN Reason: Moderate Pain (pain scale 4-5) Promethazine HCl (Phenergan) 12.5 mg IV Q6H PRN PRN PRN Reason: NAUSEA/VOMITING Psyllium Hydrophilic Mucilloid (Metamucil) 1 packet PO DAILY PRN PRN PRN Reason: CONSTIPATION Sodium Chloride () 5 - 30 ml IV UD PRN PRN Reason: SALINE FLUSH Medical Necessity - Tobacco Use Smoking Status: Current every day smoker Tobacco Use: Cigarettes Assessment/Plan All Active Problems Hip pain, acute (Acute) Urinary retention (Acute) The patient is a 72 y/o M w/ PMHx: Chronic BL LE Lymphedema, Chronic Venous Stasis Dermatitis, CKD stage II, GERD, HTN, HLD, Tobacco use, Hx Prostate CA treated with radiation therapy and hormone deprivation therapy w/ BPH, Hx Numerous Tubular Adenomas of the Colon s/p R colectomy and prior polypectomy, Chronic Normocytic Anemia who presents to the [facility] ED on 04/24/18 with onset ~ 5 days prior intractable R hip pain, inability to place weight without severe focal pain in the hip and decreased concurrent ROM with attempts to use a walker; however, further decline and debility secondary to worsening severe, sharp pain in the R hip. especially with any attempted weight placement or ROM testing. (1) General debility, R Severe hip pain, Suspect Possible Underlying R Hip Fracture: ED plain film of the right hip and pelvis with mild degenerative narrowing of the right hip without any acute obvious bone or joint findings however given severity of presentation and concerning examination, CT of the hip obtained with no evidence of acute fracture. Orthopedic surgery consulted, noted possibly secondary to back pain with radiculopathy to the right lower extremity however very focal and still concerning for possible occult fracture therefore lumbar film as well as MRI of the right lower extremity and hip ordered per Dr. Starks, pending. CXR pending this AM, not performed evening prior. Maintain frequent positioning, fall precautions, NWB until MRI obtained. Pain, anti-emetic regimen. PT, OT, CM once cleared for activity pending further imaging as noted. (2) Hypertension: Continue home regimen including norvasc, HCTZ, cardura. Given BL LE edema history, norvasc also perhaps not best regimen choice, unclear if previously tried ACEI. PRN hydralazine. (3) Hyperlipidemia: Not on statin regimen, defer to outpatient given acute presentation. (4) Tobacco Abuse: Encouraged cessation, inpatient consultation per RT, NR if desired. (5) Hx Prostate CA: Patient treated with radiation therapy and hormone deprivation therapy (Lupron shots) w/ BPH. (6) Hx Numerous Tubular Adenomas: Notable colonic polyp history, s/p R colectomy and prior polypectomies. (7) Chronic Normocytic Anemia: Admission Hgb 10.6, stable, baseline Hgb 10-11 range. (8) Chronic BL LE Lymphedema w/ Chronic Venous Stasis Dermatitis: Notable dry skin, will consult Wound RN, elevate as able, place snug sherron wraps. (9) CKD stage II: Admission BUN/Cr 19/1.37, stable, baseline Cr 1.3, hydrated overngiht, 04/25/18 BUN/Cr 19/1.11. (10) Moderate to Severe Protein-Calorie Malnutrition: Evidenced per habitus, muscle and fat loss, nutrition consulted, supplementation. (11) GERD: PPI. (12) DVT Prophylaxis: SCDs, heparin. Code Visit Inpatient E&M: 71758 Subs Hosp L2
--- NOTE | 2018-04-25 08:56 | PN_ITS ---
Subjective: The patient is a 72 y/o M w/ PMHx: Chronic BL LE Lymphedema, Chronic Venous Stasis Dermatitis, CKD stage II, GERD, HTN, HLD, Tobacco use, Hx Prostate CA treated with radiation therapy and hormone deprivation therapy w/ BPH, Hx Numerous Tubular Adenomas of the Colon s/p R colectomy and prior polypectomy, Chronic Normocytic Anemia who presents to the [facility] ED on 04/24/18 with onset ~ 5 days prior intractable R hip pain, inability to place weight without severe focal pain in the hip and decreased concurrent ROM with attempts to use a walker ; however, further decline and debility secondary to worsening severe, sharp pain in the R hip. especially with any attempted weight placement or ROM testing. ED plain film of the right hip and pelvis with mild degenerative narrowing of the right hip without any acute obvious bone or joint findings however given severity of presentation and concerning examination, CT of the hip obtained with no evidence of acute fracture. Orthopedic surgery consulted, noted possibly secondary to back pain with radiculopathy to the right lower extremity however very focal and still concerning for possible occult fracture therefore lumbar film as well as MRI of the right lower extremity and hip ordered per Dr. Starks, pending. CXR pending this AM, not performed evening prior. Maintain frequent positioning, fall precautions, NWB until MRI obtained. Pain, anti-emetic regimen. PT, OT, CM once cleared for activity pending further imaging as noted. Patient overnight with no acute events per self and per nursing report. He notes ongoing discomfort to the right hip primarily with rotational attempts of the hip but has not placed any weight secondary to bed rest until further assessment for possible hip fracture. Reviewed CT scan with him that did not demonstrate any fracture but still concerning appearance with evaluation per orthopedic surgery this morning and giving ongoing pain possibly right radiculopathy from his back however concern for an occult femoral neck fracture therefore MRI of the hip pending. Patient denies fevers, chills, nausea, emesis , abdominal pain, chest pain or dyspnea. Objective: Physical Examination: General: awake, alert, oriented x 3 and cooperative, laying in the bed, NAD. Skin: normal color, turgor, no icterus, cyanosis except BL LE chronic venous stasis skin changes and dermatitis, also dermatitis noted on the upper extremities. HEENT: AT/NC, EOMI, PERRLA, improved MMM. Lungs: Diminished BS BL, > bases, mild effort, no rales, ronchi or wheezing. Heart: Regular rate and rhythm; no gallop, rub audible. Abdomen: soft, thin/cachectic appearing habitus, NTTP, ND, normal BS. Extremities: no cyanosis, clubbing, BL LE mild ankle edema, not marked, see skin for further findings, R hip remains non-painful with palpation, pain with any ROM, pain w/ SLR. Neurological: patient awake, alert, oriented x 3; cognitive function intact; pupils equally reactive to light and accomodation; cranial nerves II-XII grossly normal, moving all 4 extremities except severely limited RLE secondary to severity of pain, strength accordingly severely globally decreased. Psychiatric: affect appears improved, normal, no acute evidence of depressive or anxiety feelings. Vitals/I&O's: Vital Signs Temp Pulse Resp BP Pulse Ox 98.1 F 62 18 158/99 H 100 04/25/18 08:16 04/25/18 08:16 04/25/18 08:16 04/25/18 08:16 04/25/18 08:16 Oxygen Delivery Method Room Air Weight: 167 lb 15.876 oz Body Mass Index (BMI) 19.9 Intake and Output for Last 24 Hours 04/23/18 04/24/18 04/25/18 23:59 23:59 23:59 Intake Total 1268 / 1268 Output Total 1175 / 1175 Balance / Laboratory Results 04/24/18 23:40: Urine Color Yellow, Urine Clarity Clear, Urine pH 6.0, Ur Specific [place] 1.015, Urine Protein Negative, Urine Glucose (UA) Normal, Urine Ketones Negative, Urine Occult Blood Negative, Urine Nitrite Negative, Urine Bilirubin Negative, Urine Urobilinogen Normal, Ur Leukocyte Esterase 25 H , Urine RBC 0 SEEN, Urine WBC 0 SEEN, Ur Squamous Epith Cells 0 SEEN, Urine Bacteria 0 SEEN, Urine Mucus 0 SEEN 04/25/18 05:27: Vitamin B12 Pending 04/25/18 05:27: WBC 3.0 L, RBC 4.17 L, Hgb 10.4 L, Hct 32.8 L, MCV 78.7 L, MCH 24.9 L, MCHC 31.7 L, RDW 17.6 H, RDW Differential 50.4 H, Plt Count 195, MPV 10.0, Immature Gran % (Auto) 0.000, Neut % (Auto) 52.6, Lymph % (Auto) 31.6, [place] % (Auto) 11.5 H, Eos % (Auto) 4.3, Baso % (Auto) 0.0, Absolute Neuts (auto ) 1.6 L, Absolute Lymphs (auto) 0.96, Total Counted Not Reportable 04/25/18 05:27: Sodium 142, Potassium 4.1, Chloride 113 H, Carbon Dioxide 24.0, Anion Gap 5, BUN 19 H, Creatinine 1.11, Estim Creat Clear Calc 64.83, Est GFR ( MDRD) Af Amer 84, Est GFR (MDRD) Non-Af 69, BUN/Creatinine Ratio 17.1, Glucose 102, Calcium 8.3 L Current Medications Acetaminophen (Tylenol) 650 mg PO Q6H PRN PRN PRN Reason: Mild Pain (scale 0-3)/T>100.7 Al Hydroxide/Mg Hydroxide (Mylanta Ii) 30 ml PO Q6H PRN PRN PRN Reason: Gastric burning Albuterol Sulfate (Ventolin Aerosols) 2.5 mg INHALATION Q2H PRN PRN PRN Reason: dyspnea, wheezing Amlodipine Besylate (Norvasc) 10 mg PO DAILY [facility] Aspirin (Aspirin, Baby) 81 mg PO DAILY@0800 [facility] Last Admin: 04/25/18 08:25 Dose: 81 mg Docusate Sodium (Colace) 100 mg PO BID [facility] Last Admin: 04/24/18 23:51 Dose: 100 mg Doxazosin Mesylate (Cardura) 2 mg PO QHS [facility] Last Admin: 04/24/18 23:51 Dose: 2 mg Fluticasone Propionate (Flonase Nasal [place]) 2 spray NASAL DAILY [facility] Heparin Sodium (Porcine) (Heparin Na) 5,000 unit SC Q12 [facility] Last Admin: 04/24/18 23:50 Dose: 5,000 u Hydralazine HCl (Apresoline Iv) 10 mg IV Q4H PRN PRN PRN Reason: SBP > 160 Hydroxyzine Pamoate (Vistaril Pamoate Capsule) 25 mg PO Q6H PRN PRN PRN Reason: ITCHING Sodium Chloride () 1,000 mls @ 100 mls/hr IV .Q10H [facility] Last Admin: 04/24/18 23:50 Dose: 100 mls/hr Magnesium Hydroxide (Milk Of Magnesia) 30 ml PO DAILY PRN PRN PRN Reason: Constipation Morphine Sulfate () 2 - 4 mg IV Q3H PRN PRN PRN Reason: Severe Pain (pain scale 6-10) Morphine Sulfate () 1 - 2 mg IV Q4H PRN PRN PRN Reason: Moderate Pain (pain scale 4-5) Multivitamins/Minerals (Multivitamin With Minerals) 1 tablet PO DAILYCM [facility] Last Admin: 04/25/18 08:25 Dose: 1 tablet Ondansetron HCl (Zofran) 4 mg IV Q8H PRN PRN PRN Reason: NAUSEA Oxycodone HCl (Oxyir) 5 mg PO Q4H PRN PRN PRN Reason: Moderate Pain (pain scale 4-5) Promethazine HCl (Phenergan) 12.5 mg IV Q6H PRN PRN PRN Reason: NAUSEA/VOMITING Psyllium Hydrophilic Mucilloid (Metamucil) 1 packet PO DAILY PRN PRN PRN Reason: CONSTIPATION Sodium Chloride () 5 - 30 ml IV UD PRN PRN Reason: SALINE FLUSH Medical Necessity - Tobacco Use Smoking Status: Current every day smoker Tobacco Use: Cigarettes Assessment/Plan All Active Problems Hip pain, acute (Acute) Urinary retention (Acute) The patient is a 72 y/o M w/ PMHx: Chronic BL LE Lymphedema, Chronic Venous Stasis Dermatitis, CKD stage II, GERD, HTN, HLD, Tobacco use, Hx Prostate CA treated with radiation therapy and hormone deprivation therapy w/ BPH, Hx Numerous Tubular Adenomas of the Colon s/p R colectomy and prior polypectomy, Chronic Normocytic Anemia who presents to the [facility] ED on 04/24/18 with onset ~ 5 days prior intractable R hip pain, inability to place weight without severe focal pain in the hip and decreased concurrent ROM with attempts to use a walker ; however, further decline and debility secondary to worsening severe, sharp pain in the R hip. especially with any attempted weight placement or ROM testing. (1) General debility, R Severe hip pain, Suspect Possible Underlying R Hip Fracture: ED plain film of the right hip and pelvis with mild degenerative narrowing of the right hip without any acute obvious bone or joint findings however given severity of presentation and concerning examination, CT of the hip obtained with no evidence of acute fracture. Orthopedic surgery consulted, noted possibly secondary to back pain with radiculopathy to the right lower extremity however very focal and still concerning for possible occult fracture therefore lumbar film as well as MRI of the right lower extremity and hip ordered per Dr. Starks, pending. CXR pending this AM, not performed evening prior. Maintain frequent positioning, fall precautions, NWB until MRI obtained. Pain, anti-emetic regimen. PT, OT, CM once cleared for activity pending further imaging as noted. (2) Hypertension: Continue home regimen including norvasc, HCTZ, cardura. Given BL LE edema history, norvasc also perhaps not best regimen choice, unclear if previously tried ACEI. PRN hydralazine. (3) Hyperlipidemia: Not on statin regimen, defer to outpatient given acute presentation. (4) Tobacco Abuse: Encouraged cessation, inpatient consultation per RT, NR if desired. (5) Hx Prostate CA: Patient treated with radiation therapy and hormone deprivation therapy (Lupron shots) w/ BPH. (6) Hx Numerous Tubular Adenomas: Notable colonic polyp history, s/p R colectomy and prior polypectomies. (7) Chronic Normocytic Anemia: Admission Hgb 10.6, stable, baseline Hgb 10-11 range. (8) Chronic BL LE Lymphedema w/ Chronic Venous Stasis Dermatitis: Notable dry skin, will consult Wound RN, elevate as able, place snug sherron wraps. (9) CKD stage II: Admission BUN/Cr 19/1.37, stable, baseline Cr 1.3, hydrated overngiht, 04/25/18 BUN/Cr 19/1.11. (10) Moderate to Severe Protein-Calorie Malnutrition: Evidenced per habitus, muscle and fat loss, nutrition consulted, supplementation. (11) GERD: PPI. (12) DVT Prophylaxis: SCDs, heparin. Code Visit Inpatient E&M: 44159 Subs Hosp L2
[2018-04-25] MEDS: amLODIPine 10 MG Tablet PO (11:32)
[2018-04-25] MEDS: Docusate Sodium 100 MG Capsule PO ×2 (11:32→21:45)
[2018-04-25] MEDS: Heparin Injection (Vial) 5,000 UNIT/ML VIAL 5000 UNIT SC ×2 (11:32→21:45)
[2018-04-25] MEDS: Fluticasone 0.05% 1 SPRAY NASAL.SRY 2 SPRAY NASAL (11:33)
[2018-04-25 14:15] VITALS: BP 144/74; PULSE 85; RESP 16; TEMP 36.8; O2SAT 100
[2018-04-25] MEDS: 0.9% NaCl Peripheral Flush Adult/Peds IV (17:38)
[2018-04-25] MEDS: Morphine 2 MG/ML Syringe IV (17:38)
[2018-04-25 20:00] VITALS: RESP 15
[2018-04-25 20:15] VITALS: BP 153/85; PULSE 67; RESP 15; TEMP 37.2; O2SAT 100
[2018-04-25] MEDS: Doxazosin 1 MG Tablet 2 MG PO (21:45)
[2018-04-26] MEDS: Ondansetron 4 MG/2 ML Vial IV (04:20)
[2018-04-26] MEDS: Morphine 2 MG/ML Syringe IV ×2 (04:21→10:47)
[2018-04-26 06:13] LABS: Absolute Lymphocyte Count 0.87 X10^3/ul (0.83-4.51); Absolute Neutrophil Count 1.9 X10^3/uL (2.0-7.7); Basophil# 0.01 X10^3/uL; Basophil% 0.3 % (0-1); Eosinophil# 0.09 X10^3/uL; Hematocrit 32.2 % (40-54); Hemoglobin 10.3 g/dl (13.0-16.5); Lymphocyte # 0.87 X10^3/ul (4.0); Lymphocyte % 28.8 % (19-41); Mean Corpuscular Hgb 24.9 pg (27.0-32.0); Mean Corpuscular Volume 77.8 fL (80-94); Mean Platelet Vol. 9.6 fl (6.2-12.0); Monocyte% 6.6 % (0-10); Neutrophil # 1.85 X10^3/uL (2.7-7.7); Neutrophil % 61.3 % (47-70); Platelet Count 189 K/mm3 (150-450); RBC Distribution Width CV 17.3 % (11.6-14.6); RBC Distribution Width SD 49.3 fl (35.1-43.9); Red Blood Count 4.14 M/mm3 (4.6-6.2)
[2018-04-26 06:21] LABS: Anion Gap 6 (5-15); BUN 19 mg/dL (7-18); BUN/Creat Ratio 16.8 RATIO (10-20); Calcium,Total 8.3 mg/dL (8.5-10.1); Chloride 110 mmol/L (98-107); Creatinine, Serum 1.13 mg/dL (0.70-1.30); EST Glomerular Filtration Rate 68 mL/min (>60); Est Glom Filt Rate - Afr Amer 82 mL/min (>60); Estimated Creatinine Clearance 63.69 ml/min; Glucose 104 mg/dL (74-106); Potassium 4.2 mmol/L (3.5-5.1); Sodium Level 141 mmol/L (136-145)
[2018-04-26 06:41] LABS: POSITIVE COUNT NO; POSITIVE DIFFERENTIAL NO; POSITIVE MORPHOLOGY NO
--- NOTE | 2018-04-26 07:14 | PCM.PN.ORT ---
Subjective: Patient continues to have right-sided hip and lower extremity pain. He states that this is slightly improved since the time that he was admitted. Patient has not been out of bed per his report Objective: Patient continues to have pain with internal/external rotation of the hip. Subjective complaints of radicular symptoms down to his knee and numbness in his foot. Exam essentially is unchanged from yesterday - Physical Exam Vital Signs Temp Pulse Resp BP Pulse Ox 99.0 F 67 15 153/85 H 100 04/25/18 20:15 04/25/18 20:15 04/25/18 20:15 04/25/18 20:15 04/25/18 20:15 Oxygen Delivery Method Room Air Weight: 167 lb 15.876 oz Body Mass Index (BMI) 19.9 Intake and Output for Last 24 Hours 04/24/18 04/25/18 04/26/18 23:59 23:59 23:59 Intake Total 3216 / 3216 120 / 120 Output Total 2725 / 2725 545 / 545 Balance 491 / 491 -425 / -425 Laboratory Tests Past 24 Hrs 04/26/18 04/26/18 05:48 05:48 WBC 3.0 L RBC 4.14 L Hgb 10.3 L Hct 32.2 L MCV 77.8 L MCH 24.9 L MCHC 32.0 RDW 17.3 H RDW Differential 49.3 H Plt Count 189 MPV 9.6 Immature Gran % (Auto) 0.000 Neut % (Auto) 61.3 Lymph % (Auto) 28.8 [place] % (Auto) 6.6 Eos % (Auto) 3.0 Baso % (Auto) 0.3 Absolute Neuts (auto) 1.9 L Absolute Lymphs (auto) 0.87 Total Counted Not Reportable Sodium 141 Potassium 4.2 Chloride 110 H Carbon Dioxide 25.0 Anion Gap 6 BUN 19 H Creatinine 1.13 Estim Creat Clear Calc 63.69 Est GFR (MDRD) Af Amer 82 Est GFR (MDRD) Non-Af 68 BUN/Creatinine Ratio 16.8 Glucose 104 Calcium 8.3 L Medical Necessity - Tobacco Use Smoking Status: Current every day smoker Tobacco Use: Cigarettes Assessment/Plan All Active Problems Hip pain, acute (Acute) Urinary retention (Acute) Intractable right hip pain Low back pain with right radicular symptoms I personally reviewed patient's MRI of his right hip as well as lumbar spine films. No acute abnormality of the hip is identified. No avascular necrosis of the hip is noted. Patient does have multilevel degenerative changes in his lumbar spine consistent with spondylosis. No obvious acute abnormality is noted in the lumbar spine. Based on his symptoms and the fact the MRI is negative I do feel that patient likely is suffering from left radicular symptoms. Would recommend IV Decadron, Flexeril, PT, OT and hopefully be able to discharge the patient today to either rehab or home. Patient should follow-up with his primary care physician in approximately 10-14 days
[2018-04-26 09:05] LABS: Vitamin B12 222 pg/mL (211-911)
[2018-04-26] MEDS: Docusate Sodium 100 MG Capsule PO ×2 (10:21→21:42)
[2018-04-26] MEDS: Fluticasone 0.05% 1 SPRAY NASAL.SRY 2 SPRAY NASAL (10:22)
[2018-04-26] MEDS: Multivitamins,Ther W-Minerals Tablet 1 TABLET PO (10:22)
[2018-04-26] MEDS: Aspirin 81 MG TAB.CHEW PO (10:22)
[2018-04-26] MEDS: Heparin Injection (Vial) 5,000 UNIT/ML VIAL 5000 UNIT SC ×2 (10:22→21:42)
[2018-04-26] MEDS: amLODIPine 10 MG Tablet PO (10:23)
--- NOTE | 2018-04-26 10:26 | CASEMGMT ---
RN CM Face to Face with patient for initial transition planning/care coordination assessment. RN CM introduced self and role at [facility]. Patient lying in bed, alert and oriented. Patient willing to participate in assessment and is able to answer all questions appropriately. Care providers, pharmacy, and demographics verified. See link attached. Patient wishes to discharge home but is willing to go to SNF if necessary at discharge. Patient states he has no further needs or concerns at this time. RN CM to continue to monitor how patient does with therapy to determine appropriate discharge setting. CM to follow for discharge planning needs that may arise. Disposition Plan: TBD pending therapy.
[2018-04-26 10:28] VITALS: BP 127/69; PULSE 75; RESP 20; TEMP 36.6; O2SAT 100
--- NOTE | 2018-04-26 11:16 | PCM.PN.HOSP ---
Subjective: still with right hip pain. Denies any falls/rashes. No bowel or bladder incontinence. Vitals/I&O's: Vital Signs Temp Pulse Resp BP Pulse Ox 36.6 C 75 20 H 127/69 H 100 04/26/18 10:28 04/26/18 10:28 04/26/18 10:28 04/26/18 10:28 04/26/18 10:28 Oxygen Delivery Method Room Air Weight: 76.2 kg Body Mass Index (BMI) 19.9 Intake and Output for Last 24 Hours 04/24/18 04/25/18 04/26/18 23:59 23:59 23:59 Intake Total 3216 / 3216 120 / 120 Output Total 2725 / 2725 545 / 545 Balance 491 / 491 -425 / -425 General: Alert, Cooperative, No apparent distress HEENT: Atraumatic Neck: No Nodes, Thyroid Normal Size and Texture Lungs: Clear to auscultation, Normal air movement, No rhonchi, No wheeze Cardiovascular: Regular rate, Regular Rhythm, Normal S1, Normal S2, No murmurs Abdomen: Bowel Sounds Present, Soft, Non Tender, Non-Distended, No Hepato-splenomegaly Extremities: No edema, No Calf Tenderness Psych/Mental Status: Normal Affect, Appropriate Laboratory Results 04/25/18 05:27: Vitamin B12 222 04/26/18 05:48: WBC 3.0 L, RBC 4.14 L, Hgb 10.3 L, Hct 32.2 L, MCV 77.8 L, MCH 24.9 L, MCHC 32.0, RDW 17.3 H, RDW Differential 49.3 H, Plt Count 189, MPV 9.6, Immature Gran % (Auto) 0.000, Neut % (Auto) 61.3, Lymph % (Auto) 28.8, [place] % (Auto) 6.6, Eos % (Auto) 3.0, Baso % (Auto) 0.3, Absolute Neuts (auto) 1.9 L, Absolute Lymphs (auto) 0.87, Total Counted Not Reportable 04/26/18 05:48: Sodium 141, Potassium 4.2, Chloride 110 H, Carbon Dioxide 25.0, Anion Gap 6, BUN 19 H, Creatinine 1.13, Estim Creat Clear Calc 63.69, Est GFR (MDRD) Af Amer 82, Est GFR (MDRD) Non-Af 68, BUN/Creatinine Ratio 16.8, Glucose 104, Calcium 8.3 L Current Medications Acetaminophen (Tylenol) 650 mg PO Q6H PRN PRN PRN Reason: Mild Pain (scale 0-3)/T>100.7 Al Hydroxide/Mg Hydroxide (Mylanta Ii) 30 ml PO Q6H PRN PRN PRN Reason: Gastric burning Albuterol Sulfate (Ventolin Aerosols) 2.5 mg INHALATION Q2H PRN PRN PRN Reason: dyspnea, wheezing Amlodipine Besylate (Norvasc) 10 mg PO DAILY [facility] Last Admin: 04/26/18 10:23 Dose: 10 mg Aspirin (Aspirin, Baby) 81 mg PO DAILY@0800 [facility] Last Admin: 04/26/18 10:22 Dose: 81 mg Docusate Sodium (Colace) 100 mg PO BID [facility] Last Admin: 04/26/18 10:21 Dose: 100 mg Doxazosin Mesylate (Cardura) 2 mg PO QHS [facility] Last Admin: 04/25/18 21:45 Dose: 2 mg Fluticasone Propionate (Flonase Nasal [place]) 2 spray NASAL DAILY [facility] Last Admin: 04/26/18 10:22 Dose: 2 spray Heparin Sodium (Porcine) (Heparin Na) 5,000 unit SC Q12 [facility] Last Admin: 04/26/18 10:22 Dose: 5,000 u Hydralazine HCl (Apresoline Iv) 10 mg IV Q4H PRN PRN PRN Reason: SBP > 160 Hydroxyzine Pamoate (Vistaril Pamoate Capsule) 25 mg PO Q6H PRN PRN PRN Reason: ITCHING Magnesium Hydroxide (Milk Of Magnesia) 30 ml PO DAILY PRN PRN PRN Reason: Constipation Morphine Sulfate () 2 - 4 mg IV Q3H PRN PRN PRN Reason: Severe Pain (pain scale 6-10) Last Admin: 04/26/18 10:47 Dose: 2 mg Morphine Sulfate () 1 - 2 mg IV Q4H PRN PRN PRN Reason: Moderate Pain (pain scale 4-5) Multivitamins/Minerals ([facility]) [facility] Last Admin: 04/26/18 10:22 Dose: 1 tablet Nutritional Formula (Lactose Free) (Ensure Enlive) 120 ml PO 4X/DAY [facility] Last Admin: 04/26/18 10:47 Dose: 120 ml Ondansetron HCl (Zofran) 4 mg IV Q8H PRN PRN PRN Reason: NAUSEA Last Admin: 04/26/18 04:20 Dose: 4 mg Oxycodone HCl (Oxyir) 5 mg PO Q4H PRN PRN PRN Reason: Moderate Pain (pain scale 4-5) Promethazine HCl (Phenergan) 12.5 mg IV Q6H PRN PRN PRN Reason: NAUSEA/VOMITING Psyllium Hydrophilic Mucilloid (Metamucil) 1 packet PO DAILY PRN PRN PRN Reason: CONSTIPATION Sodium Chloride () 5 - 30 ml IV UD PRN PRN Reason: SALINE FLUSH Last Admin: 04/25/18 17:38 Dose: 10 ml Medical Necessity - Tobacco Use Smoking Status: Current every day smoker Tobacco Use: Cigarettes Assessment/Plan All Active Problems Hip pain, acute (Acute) Urinary retention (Acute) 1. Right hip pain work up for right hip pain confined to the hip/leg itself has been negative. no rash to suggest zoster could be radicular. Will start empiric prednisone taper PT/OT if no response to steroids and therapy, then follow up imaging of lumbar spine pain control 2. Debility may need SNF pt though says he has help (in family) at home. 3. Dermatitis thickened skin noted on exam. no evidence of pyoderma gangrenosum wound care to evaluated 4. DVT proph SQ heparin. Code Visit Inpatient E&M: 63965 Subs Hosp L2
--- NOTE | 2018-04-26 11:20 | PN_ITS ---
Subjective: still with right hip pain. Denies any falls/rashes. No bowel or bladder incontinence. Vitals/I&O's: Vital Signs Temp Pulse Resp BP Pulse Ox 36.6 C 75 20 H 127/69 H 100 04/26/18 10:28 04/26/18 10:28 04/26/18 10:28 04/26/18 10:28 04/26/18 10:28 Oxygen Delivery Method Room Air Weight: 76.2 kg Body Mass Index (BMI) 19.9 Intake and Output for Last 24 Hours 04/24/18 04/25/18 04/26/18 23:59 23:59 23:59 Intake Total 3216 / 3216 120 / 120 Output Total 2725 / 2725 545 / 545 Balance 491 / 491 -425 / -425 General: Alert, Cooperative, No apparent distress HEENT: Atraumatic Neck: No Nodes, Thyroid Normal Size and Texture Lungs: Clear to auscultation, Normal air movement, No rhonchi, No wheeze Cardiovascular: Regular rate, Regular Rhythm, Normal S1, Normal S2, No murmurs Abdomen: Bowel Sounds Present, Soft, Non Tender, Non-Distended, No Hepato- splenomegaly Extremities: No edema, No Calf Tenderness Psych/Mental Status: Normal Affect, Appropriate Laboratory Results 04/25/18 05:27: Vitamin B12 222 04/26/18 05:48: WBC 3.0 L, RBC 4.14 L, Hgb 10.3 L, Hct 32.2 L, MCV 77.8 L, MCH 24.9 L, MCHC 32.0, RDW 17.3 H, RDW Differential 49.3 H, Plt Count 189, MPV 9.6, Immature Gran % (Auto) 0.000, Neut % (Auto) 61.3, Lymph % (Auto) 28.8, [place] % ( Auto) 6.6, Eos % (Auto) 3.0, Baso % (Auto) 0.3, Absolute Neuts (auto) 1.9 L, Absolute Lymphs (auto) 0.87, Total Counted Not Reportable 04/26/18 05:48: Sodium 141, Potassium 4.2, Chloride 110 H, Carbon Dioxide 25.0, Anion Gap 6, BUN 19 H, Creatinine 1.13, Estim Creat Clear Calc 63.69, Est GFR ( MDRD) Af Amer 82, Est GFR (MDRD) Non-Af 68, BUN/Creatinine Ratio 16.8, Glucose 104, Calcium 8.3 L Current Medications Acetaminophen (Tylenol) 650 mg PO Q6H PRN PRN PRN Reason: Mild Pain (scale 0-3)/T>100.7 Al Hydroxide/Mg Hydroxide (Mylanta Ii) 30 ml PO Q6H PRN PRN PRN Reason: Gastric burning Albuterol Sulfate (Ventolin Aerosols) 2.5 mg INHALATION Q2H PRN PRN PRN Reason: dyspnea, wheezing Amlodipine Besylate (Norvasc) 10 mg PO DAILY [facility] Last Admin: 04/26/18 10:23 Dose: 10 mg Aspirin (Aspirin, Baby) 81 mg PO DAILY@0800 [facility] Last Admin: 04/26/18 10:22 Dose: 81 mg Docusate Sodium (Colace) 100 mg PO BID [facility] Last Admin: 04/26/18 10:21 Dose: 100 mg Doxazosin Mesylate (Cardura) 2 mg PO QHS [facility] Last Admin: 04/25/18 21:45 Dose: 2 mg Fluticasone Propionate (Flonase Nasal [place]) 2 spray NASAL DAILY [facility] Last Admin: 04/26/18 10:22 Dose: 2 spray Heparin Sodium (Porcine) (Heparin Na) 5,000 unit SC Q12 [facility] Last Admin: 04/26/18 10:22 Dose: 5,000 u Hydralazine HCl (Apresoline Iv) 10 mg IV Q4H PRN PRN PRN Reason: SBP > 160 Hydroxyzine Pamoate (Vistaril Pamoate Capsule) 25 mg PO Q6H PRN PRN PRN Reason: ITCHING Magnesium Hydroxide (Milk Of Magnesia) 30 ml PO DAILY PRN PRN PRN Reason: Constipation Morphine Sulfate () 2 - 4 mg IV Q3H PRN PRN PRN Reason: Severe Pain (pain scale 6-10) Last Admin: 04/26/18 10:47 Dose: 2 mg Morphine Sulfate () 1 - 2 mg IV Q4H PRN PRN PRN Reason: Moderate Pain (pain scale 4-5) Multivitamins/Minerals ([facility]) [facility] Admin: 04/26/18 10:22 Dose: 1 tablet Nutritional Formula (Lactose Free) (Ensure Enlive) 120 ml PO 4X/DAY [facility] Last Admin: 04/26/18 10:47 Dose: 120 ml Ondansetron HCl (Zofran) 4 mg IV Q8H PRN PRN PRN Reason: NAUSEA Last Admin: 04/26/18 04:20 Dose: 4 mg Oxycodone HCl (Oxyir) 5 mg PO Q4H PRN PRN PRN Reason: Moderate Pain (pain scale 4-5) Promethazine HCl (Phenergan) 12.5 mg IV Q6H PRN PRN PRN Reason: NAUSEA/VOMITING Psyllium Hydrophilic Mucilloid (Metamucil) 1 packet PO DAILY PRN PRN PRN Reason: CONSTIPATION Sodium Chloride () 5 - 30 ml IV UD PRN PRN Reason: SALINE FLUSH Last Admin: 04/25/18 17:38 Dose: 10 ml Medical Necessity - Tobacco Use Smoking Status: Current every day smoker Tobacco Use: Cigarettes Assessment/Plan All Active Problems Hip pain, acute (Acute) Urinary retention (Acute) 1. Right hip pain * work up for right hip pain confined to the hip/leg itself has been negative. * no rash to suggest zoster * could be radicular. Will start empiric prednisone taper * PT/OT * if no response to steroids and therapy, then follow up imaging of lumbar spine * pain control 2. Debility * may need SNF * pt though says he has help (in family) at home. 3. Dermatitis * thickened skin noted on exam. no evidence of pyoderma gangrenosum * wound care to evaluated 4. DVT proph SQ heparin. Code Visit Inpatient E&M: 88258 Subs Hosp L2
[2018-04-26 18:58] VITALS: BP 124/63; PULSE 67; RESP 16; TEMP 36.8; O2SAT 98
[2018-04-26 21:23] VITALS: BP 136/63; PULSE 64; RESP 16; TEMP 36.6; O2SAT 99
[2018-04-26] MEDS: Doxazosin 1 MG Tablet 2 MG PO (21:42)
[2018-04-26] MEDS: oxyCODONE 5 MG Tablet PO (21:43)
[2018-04-27 02:19] VITALS: BP 126/63; PULSE 65; RESP 16; TEMP 36.9; O2SAT 98
[2018-04-27 06:04] LABS: Absolute Lymphocyte Count 0.78 X10^3/ul (0.83-4.51); Absolute Neutrophil Count 2.1 X10^3/uL (2.0-7.7); Basophil# 0.01 X10^3/uL; Basophil% 0.3 % (0-1); Eosinophils% 3.1 % (0-5); Hematocrit 30.8 % (40-54); Hemoglobin 9.9 g/dl (13.0-16.5); Lymphocyte # 0.78 X10^3/ul (4.0); Lymphocyte % 24.1 % (19-41); Mean Corp Hgb Conc 32.1 g/gl (32-36); Mean Corpuscular Volume 77.8 fL (80-94); Mean Platelet Vol. 9.8 fl (6.2-12.0); Monocyte# 0.21 X10^3/uL; Monocyte% 6.5 % (0-10); Neutrophil # 2.13 X10^3/uL (2.7-7.7); Platelet Count 192 K/mm3 (150-450); RBC Distribution Width CV 17.2 % (11.6-14.6); RBC Distribution Width SD 49.6 fl (35.1-43.9); Red Blood Count 3.96 M/mm3 (4.6-6.2); White Blood Count 3.2 K/mm3 (4.4-11.0)
[2018-04-27 06:06] LABS: POSITIVE COUNT NO; POSITIVE DIFFERENTIAL NO; POSITIVE MORPHOLOGY NO
[2018-04-27 06:21] LABS: Anion Gap 7 (5-15); BUN 25 mg/dL (7-18); BUN/Creat Ratio 19.1 RATIO (10-20); Calcium,Total 8.3 mg/dL (8.5-10.1); Chloride 108 mmol/L (98-107); Creatinine, Serum 1.31 mg/dL (0.70-1.30); EST Glomerular Filtration Rate 57 mL/min (>60); Est Glom Filt Rate - Afr Amer 69 mL/min (>60); Estimated Creatinine Clearance 54.94 ml/min; Glucose 104 mg/dL (74-106); Potassium 4.3 mmol/L (3.5-5.1); Sodium Level 139 mmol/L (136-145)
[2018-04-27 08:19] VITALS: BP 116/60; PULSE 98; RESP 18; TEMP 37; O2SAT 96
[2018-04-27] MEDS: Multivitamins,Ther W-Minerals Tablet 1 TABLET PO (08:50)
[2018-04-27] MEDS: Aspirin 81 MG TAB.CHEW PO (08:50)
[2018-04-27] MEDS: Docusate Sodium 100 MG Capsule PO (08:50)
[2018-04-27] MEDS: Fluticasone 0.05% 1 SPRAY NASAL.SRY 2 SPRAY NASAL (08:51)
[2018-04-27] MEDS: Heparin Injection (Vial) 5,000 UNIT/ML VIAL 5000 UNIT SC (08:52)
[2018-04-27] MEDS: amLODIPine 10 MG Tablet PO (08:52)
[2018-04-27] MEDS: predniSONE 20 MG Tablet 40 MG PO (08:55)
--- NOTE | 2018-04-27 09:32 | CASEMGMT ---
FLORES MEHTA in to discuss discharge plans with patient. Patient wishes to discharge home and is agreeable to [facility] at discharge for jail and PT/OT. Patient agreeable to [facility] for HHC. FLORES MEHTA sent referral to [facility] and they are able to accept the patient. Dr. Hutchins updated regarding discharge plans. FLORES MEHTA will continue to follow this patient and plan for a safe discharge.
--- NOTE | 2018-04-27 10:10 | PCM.PN.HOSP ---
Subjective: right hip pain improved. Vitals/I&O's: Vital Signs Temp Pulse Resp BP Pulse Ox 37.0 C 98 18 116/60 96 04/27/18 08:19 04/27/18 08:19 04/27/18 08:19 04/27/18 08:19 04/27/18 08:19 Oxygen Delivery Method Room Air Weight: 76.2 kg Body Mass Index (BMI) 19.9 Intake and Output for Last 24 Hours 04/25/18 04/26/18 04/27/18 23:59 23:59 23:59 Intake Total 3216 / 3216 620 / 620 400 / 400 Output Total 2725 / 2725 1145 / 1145 650 / 650 Balance 491 / 491 -525 / -525 -250 / -250 General: Alert, No apparent distress HEENT: Atraumatic, Normocephalic Extremities: - Musculoskeletal: Cachexia, Muscle Wasting Laboratory Results 04/27/18 05:20: WBC 3.2 L, RBC 3.96 L, Hgb 9.9 L, Hct 30.8 L, MCV 77.8 L, MCH 25.0 L, MCHC 32.1, RDW 17.2 H, RDW Differential 49.6 H, Plt Count 192, MPV 9.8, Immature Gran % (Auto) 0.000, Neut % (Auto) 66.0, Lymph % (Auto) 24.1, [place] % (Auto) 6.5, Eos % (Auto) 3.1, Baso % (Auto) 0.3, Absolute Neuts (auto) 2.1, Absolute Lymphs (auto) 0.78 L, Total Counted Not Reportable 04/27/18 05:20: Sodium 139, Potassium 4.3, Chloride 108 H, Carbon Dioxide 24.0, Anion Gap 7, BUN 25 H, Creatinine 1.31 H, Estim Creat Clear Calc 54.94, Est GFR (MDRD) Af Amer 69, Est GFR (MDRD) Non-Af 57 L, BUN/Creatinine Ratio 19.1, Glucose 104, Calcium 8.3 L Current Medications Acetaminophen (Tylenol) 650 mg PO Q6H PRN PRN PRN Reason: Mild Pain (scale 0-3)/T>100.7 Al Hydroxide/Mg Hydroxide (Mylanta Ii) 30 ml PO Q6H PRN PRN PRN Reason: Gastric burning Albuterol Sulfate (Ventolin Aerosols) 2.5 mg INHALATION Q2H PRN PRN PRN Reason: dyspnea, wheezing Amlodipine Besylate (Norvasc) 10 mg PO DAILY [facility] Last Admin: 04/27/18 08:52 Dose: 10 mg Aspirin (Aspirin, Baby) 81 mg PO DAILY@0800 [facility] Last Admin: 04/27/18 08:50 Dose: 81 mg Docusate Sodium (Colace) 100 mg PO BID [facility] Last Admin: 04/27/18 08:50 Dose: 100 mg Doxazosin Mesylate (Cardura) 2 mg PO QHS [facility] Last Admin: 04/26/18 21:42 Dose: 2 mg Emollient Ointment (Eucerin Intensive Repair) 1 applic TOPICAL DAILY [facility] PRN Reason: Protocol Last Admin: 04/27/18 08:51 Dose: 1 applicatio Fluticasone Propionate (Flonase Nasal [place]) 2 spray NASAL DAILY [facility] Last Admin: 04/27/18 08:51 Dose: 2 spray Heparin Sodium (Porcine) (Heparin Na) 5,000 unit SC Q12 [facility] Last Admin: 04/27/18 08:52 Dose: 5,000 u Hydralazine HCl (Apresoline Iv) 10 mg IV Q4H PRN PRN PRN Reason: SBP > 160 Hydroxyzine Pamoate (Vistaril Pamoate Capsule) 25 mg PO Q6H PRN PRN PRN Reason: ITCHING Magnesium Hydroxide (Milk Of Magnesia) 30 ml PO DAILY PRN PRN PRN Reason: Constipation Morphine Sulfate () 2 - 4 mg IV Q3H PRN PRN PRN Reason: Severe Pain (pain scale 6-10) Last Admin: 04/26/18 10:47 Dose: 2 mg Morphine Sulfate () 1 - 2 mg IV Q4H PRN PRN PRN Reason: Moderate Pain (pain scale 4-5) Multivitamins/Minerals ([facility]) [facility] Last Admin: 04/27/18 08:50 Dose: 1 tablet Nutritional Formula (Lactose Free) (Ensure Enlive) 120 ml PO 4X/DAY [facility] Last Admin: 04/27/18 08:51 Dose: 120 ml Ondansetron HCl (Zofran) 4 mg IV Q8H PRN PRN PRN Reason: NAUSEA Last Admin: 04/26/18 04:20 Dose: 4 mg Oxycodone HCl (Oxyir) 5 mg PO Q4H PRN PRN PRN Reason: Moderate Pain (pain scale 4-5) Last Admin: 04/26/18 21:43 Dose: 5 mg Prednisone () 40 mg PO DAILY@0800 [facility] Last Admin: 04/27/18 08:55 Dose: 40 mg Promethazine HCl (Phenergan) 12.5 mg IV Q6H PRN PRN PRN Reason: NAUSEA/VOMITING Psyllium Hydrophilic Mucilloid (Metamucil) 1 packet PO DAILY PRN PRN PRN Reason: CONSTIPATION Sodium Chloride () 5 - 30 ml IV UD PRN PRN Reason: SALINE FLUSH Last Admin: 04/25/18 17:38 Dose: 10 ml Medical Necessity - Tobacco Use Smoking Status: Current every day smoker Tobacco Use: Cigarettes Assessment/Plan All Active Problems Hip pain, acute (Acute) Urinary retention (Acute) 1. Right hip pain work up for right hip pain confined to the hip/leg itself has been negative. no rash to suggest zoster could be radicular. Will start empiric prednisone taper PT/OT if no response to steroids and therapy, then follow up imaging of lumbar spine pain control improved 2. Debility walked well with walker has walker at home discharge to home with [facility]. pt though says he has help (in family) at home. 3. Dermatitis thickened skin noted on exam. no evidence of pyoderma gangrenosum wound care to evaluated emollients 4. DVT proph SQ heparin.
--- NOTE | 2018-04-27 10:13 | PN_ITS ---
Subjective: right hip pain improved. Vitals/I&O's: Vital Signs Temp Pulse Resp BP Pulse Ox 37.0 C 98 18 116/60 96 04/27/18 08:19 04/27/18 08:19 04/27/18 08:19 04/27/18 08:19 04/27/18 08:19 Oxygen Delivery Method Room Air Weight: 76.2 kg Body Mass Index (BMI) 19.9 Intake and Output for Last 24 Hours 04/25/18 04/26/18 04/27/18 23:59 23:59 23:59 Intake Total 3216 / 3216 620 / 620 400 / 400 Output Total 2725 / 2725 1145 / 1145 650 / 650 Balance 491 / 491 -525 / -525 -250 / -250 General: Alert, No apparent distress HEENT: Atraumatic, Normocephalic Extremities: - Musculoskeletal: Cachexia, Muscle Wasting Laboratory Results 04/27/18 05:20: WBC 3.2 L, RBC 3.96 L, Hgb 9.9 L, Hct 30.8 L, MCV 77.8 L, MCH 25.0 L, MCHC 32.1, RDW 17.2 H, RDW Differential 49.6 H, Plt Count 192, MPV 9.8, Immature Gran % (Auto) 0.000, Neut % (Auto) 66.0, Lymph % (Auto) 24.1, [place] % ( Auto) 6.5, Eos % (Auto) 3.1, Baso % (Auto) 0.3, Absolute Neuts (auto) 2.1, Absolute Lymphs (auto) 0.78 L, Total Counted Not Reportable 04/27/18 05:20: Sodium 139, Potassium 4.3, Chloride 108 H, Carbon Dioxide 24.0, Anion Gap 7, BUN 25 H, Creatinine 1.31 H, Estim Creat Clear Calc 54.94, Est GFR (MDRD) Af Amer 69, Est GFR (MDRD) Non-Af 57 L, BUN/Creatinine Ratio 19.1, Glucose 104, Calcium 8.3 L Current Medications Acetaminophen (Tylenol) 650 mg PO Q6H PRN PRN PRN Reason: Mild Pain (scale 0-3)/T>100.7 Al Hydroxide/Mg Hydroxide (Mylanta Ii) 30 ml PO Q6H PRN PRN PRN Reason: Gastric burning Albuterol Sulfate (Ventolin Aerosols) 2.5 mg INHALATION Q2H PRN PRN PRN Reason: dyspnea, wheezing Amlodipine Besylate (Norvasc) 10 mg PO DAILY [facility] Last Admin: 04/27/18 08:52 Dose: 10 mg Aspirin (Aspirin, Baby) 81 mg PO DAILY@0800 [facility] Last Admin: 04/27/18 08:50 Dose: 81 mg Docusate Sodium (Colace) 100 mg PO BID [facility] Last Admin: 04/27/18 08:50 Dose: 100 mg Doxazosin Mesylate (Cardura) 2 mg PO QHS [facility] Last Admin: 04/26/18 21:42 Dose: 2 mg Emollient Ointment (Eucerin Intensive Repair) 1 applic TOPICAL DAILY [facility] PRN Reason: Protocol Last Admin: 04/27/18 08:51 Dose: 1 applicatio Fluticasone Propionate (Flonase Nasal [place]) 2 spray NASAL DAILY [facility] Last Admin: 04/27/18 08:51 Dose: 2 spray Heparin Sodium (Porcine) (Heparin Na) 5,000 unit SC Q12 [facility] Last Admin: 04/27/18 08:52 Dose: 5,000 u Hydralazine HCl (Apresoline Iv) 10 mg IV Q4H PRN PRN PRN Reason: SBP > 160 Hydroxyzine Pamoate (Vistaril Pamoate Capsule) 25 mg PO Q6H PRN PRN PRN Reason: ITCHING Magnesium Hydroxide (Milk Of Magnesia) 30 ml PO DAILY PRN PRN PRN Reason: Constipation Morphine Sulfate () 2 - 4 mg IV Q3H PRN PRN PRN Reason: Severe Pain (pain scale 6-10) Last Admin: 04/26/18 10:47 Dose: 2 mg Morphine Sulfate () 1 - 2 mg IV Q4H PRN PRN PRN Reason: Moderate Pain (pain scale 4-5) Multivitamins/Minerals (Multivitamin With Minerals) [facility] Last Admin: 04/27/18 08:50 Dose: 1 tablet Nutritional Formula (Lactose Free) (Ensure Enlive) 120 ml PO 4X/DAY [facility] Last Admin: 04/27/18 08:51 Dose: 120 ml Ondansetron HCl (Zofran) 4 mg IV Q8H PRN PRN PRN Reason: NAUSEA Last Admin: 04/26/18 04:20 Dose: 4 mg Oxycodone HCl (Oxyir) 5 mg PO Q4H PRN PRN PRN Reason: Moderate Pain (pain scale 4-5) Last Admin: 04/26/18 21:43 Dose: 5 mg Prednisone () 40 mg PO DAILY@0800 [facility] Last Admin: 04/27/18 08:55 Dose: 40 mg Promethazine HCl (Phenergan) 12.5 mg IV Q6H PRN PRN PRN Reason: NAUSEA/VOMITING Psyllium Hydrophilic Mucilloid (Metamucil) 1 packet PO DAILY PRN PRN PRN Reason: CONSTIPATION Sodium Chloride () 5 - 30 ml IV UD PRN PRN Reason: SALINE FLUSH Last Admin: 04/25/18 17:38 Dose: 10 ml Medical Necessity - Tobacco Use Smoking Status: Current every day smoker Tobacco Use: Cigarettes Assessment/Plan All Active Problems Hip pain, acute (Acute) Urinary retention (Acute) 1. Right hip pain * work up for right hip pain confined to the hip/leg itself has been negative. * no rash to suggest zoster * could be radicular. Will start empiric prednisone taper * PT/OT * if no response to steroids and therapy, then follow up imaging of lumbar spine * pain control * improved 2. Debility * walked well with walker * has walker at home * discharge to home with [facility]. * pt though says he has help (in family) at home. 3. Dermatitis * thickened skin noted on exam. no evidence of pyoderma gangrenosum * wound care to evaluated * emollients 4. DVT proph SQ heparin.
--- NOTE | 2018-04-27 10:20 | PCM.DC ---
You will use the following diet at home:: No restrictions Your food should be the consistency of: Regular Your liquids should be the consistency of: Regular/Thin Discharge Activity: - - activity as tolerated Allergies/Adverse Reactions: Allergies Sulfa (Sulfonamide Antibiotics) Allergy (Verified 04/24/18 16:45) Rash Medications to take at Discharge Amlodipine [Norvasc] 10 mg PO DAILY 04/28/17 Doxazosin Mesylate [Cardura] 2 mg PO QHS 06/15/17 Fluticasone 0.05% [Flonase Nasal [place]] 2 spray NASAL DAILY 06/15/17 Leuprolide Acetate [Lupron [place]] 30 mg IM QMONTH 06/15/17 Hydroxyzine HCl 25 mg PO Q6H PRN PRN 04/24/18 Acetaminophen [Pain Reliever] 500 mg PO Q4H PRN #1 tablet 04/27/18 Ensure Enlive 120 ml PO 4X/DAY #28 liquid 04/27/18 Ibuprofen 400 mg PO Q6H PRN #1 tablet 04/27/18 Mineral Oil/Petrolatum Cr [Aquaphor] 1 applic TOPICAL DAILY #1 bottle 04/27/18 Oxycodone [Oxyir] 5 mg PO Q6H PRN PRN 2 Days #8 tablet 04/27/18 Prednisone 10 mg PO DAILY #30 tablet 04/27/18 The following prescriptions were given: Oxycodone [Oxyir] 5 mg PO Q6H PRN PRN 2 Days #8 tablet PRN Reason: Moderate Pain (pain scale 4-5) Acetaminophen [Pain Reliever] 500 mg PO Q4H PRN #1 tablet PRN Reason: Pain Mineral Oil/Petrolatum Cr [Aquaphor] 1 applic TOPICAL DAILY #1 bottle Prednisone 10 mg PO DAILY #30 tablet Ibuprofen 400 mg PO Q6H PRN #1 tablet PRN Reason: Pain Ensure Enlive 120 ml PO 4X/DAY #28 liquid Primary Care Physician: Toby Roche MD [Primary Care Provider] - Within 2 Weeks Proposed Discharge Date: 04/27/18
--- NOTE | 2018-04-27 10:24 | DS.PCM_ITS ---
Discharge Date and Diagnosis - Problem List Patient Problems: Active and Suspected Problems Right hip pain (Acute) Date of Admission: 04/24/18 Date of Discharge: 04/27/18 - Primary Discharge Diagnosis Active and Suspected Problems Right hip pain (Acute) - Secondary Discharge Diagnosis Chronic Problems Bilateral lower extremity edema (Chronic) CKD (chronic kidney disease) stage 2, GFR 60-89 ml/min (Chronic) Baseline Cr 1.3 HTN (hypertension) (Chronic) HLD (hyperlipidemia) (Chronic) Tobacco use (Chronic) Prostate cancer (Chronic) Anemia (Chronic) Colon polyps (Chronic) Hospital Course and Treatment Imaging Results: Clinical Impression(s) from Imaging Studies Hip/Pelvis X-Ray 04/24/18 17:17 IMPRESSION: Mild degenerative narrowing of the right hip without other acute bone or joint findings of the pelvis or hip. Electronically Signed: Galina Patel MD at 17:41 EDT , Service support , Lower Extremity CT 04/24/18 18:02 IMPRESSION: Mild degenerative arthrosis of the right hip with no other acute bone, joint or soft tissue findings. Electronically Signed: Galina Patel MD at 18:57 EDT , Service support , Lower Extremity MRI 04/25/18 08:35 IMPRESSION: No fracture or avascular necrosis. Mild degenerative change. Right greater than left hydroceles. Electronically Signed: Wilfred Deras MD at 12:46 EDT , Service support , Lumbar Spine X-Ray 04/25/18 08:37 IMPRESSION: Degenerative change. No fracture seen. Postoperative changes of the abdomen. Electronically Signed: Wilfred Deras MD at 13:51 EDT , Service support , Consultations 04/26/18 11:20 Consult: Onc/Wound/printing press machinist Routine Comment: Jesse Starks DO. Operations: colectomy - Laparoscopic right colectomy Procedures: None Summary of Care Provided: The patient is a 72 year old M presents with right hip pain. 1. Right hip pain * work up for right hip pain confined to the hip/leg itself has been negative. * no rash to suggest zoster * could be radicular. Will start empiric prednisone taper * PT/OT * if no response to steroids and therapy, then follow up imaging of lumbar spine * pain control * improved 2. Debility * walked well with walker * has walker at home * discharge to home with [facility]. * pt though says he has help (in family) at home. 3. Dermatitis * thickened skin noted on exam. no evidence of pyoderma gangrenosum * wound care to evaluated * emollients [] Discharge Diet: No Restrictions Discharge Activity: - - activity as tolerated Home Medications: Medications to take at Discharge Amlodipine [Norvasc] 10 mg PO DAILY 04/28/17 Doxazosin Mesylate [Cardura] 2 mg PO QHS 06/15/17 Fluticasone 0.05% [Flonase Nasal Lamont] 2 spray NASAL DAILY 06/15/17 Leuprolide Acetate [Lupron Depot] 30 mg IM QMONTH 06/15/17 Hydroxyzine HCl 25 mg PO Q6H PRN PRN 04/24/18 Acetaminophen [Pain Reliever] 500 mg PO Q4H PRN #1 tablet 04/27/18 Ensure Enlive 120 ml PO 4X/DAY #28 liquid 04/27/18 Ibuprofen 400 mg PO Q6H PRN #1 tablet 04/27/18 Mineral Oil/Petrolatum Cr [Aquaphor] 1 applic TOPICAL DAILY #1 bottle 04/27/18 Oxycodone [Oxyir] 5 mg PO Q6H PRN PRN 2 Days #8 tablet 04/27/18 Prednisone 10 mg PO DAILY #30 tablet 04/27/18 Following Prescrptions Were Given to Patient: Oxycodone [Oxyir] 5 mg PO Q6H PRN PRN 2 Days #8 tablet PRN Reason: Moderate Pain (pain scale 4-5) Acetaminophen [Pain Reliever] 500 mg PO Q4H PRN #1 tablet PRN Reason: Pain Mineral Oil/Petrolatum Cr [Aquaphor] 1 applic TOPICAL DAILY #1 bottle Prednisone 10 mg PO DAILY #30 tablet Ibuprofen 400 mg PO Q6H PRN #1 tablet PRN Reason: Pain Ensure Enlive 120 ml PO 4X/DAY #28 liquid Primary Care Physician: Toby Roche MD [Primary Care Provider] - Within 2 Weeks Disposition: Home with Home Health Minutes spent on discharge:: 33 Patient Condition:: Fair Medical Necessity - Tobacco Use Smoking Status: Current every day smoker Tobacco Use: Cigarettes Meaningful Use Info Meaningful Use Diagnoses (Choose all that apply): None applicable Code Visit Inpatient E&M: 33999 Disch Hosp
--- NOTE | 2018-04-27 12:57 | NURSING ---
spoke with mia delvalle about scripts for pt to [facility] at his preferred pharmacy
== END 2018-04-27 11:48 | disposition home health service (06) ==
LOC: ED 17:51 → MS3 04-25 06:35
PROVIDERS: Admitting Provider Family Medicine; Emergency Provider Emergency Medicine; Family Provider Internal Medicine; PCP Internal Medicine
DX: M25.551 Pain in right hip (principal); R60.0 Localized edema; E78.5 Hyperlipidemia, unspecified; I12.9 Hypertensive chronic kidney disease with stage 1 through stage 4 chronic kidney disease, or unspecified chronic kidney disease; N18.2 Chronic kidney disease, stage 2 (mild); D64.9 Anemia, unspecified; L30.9 Dermatitis, unspecified; F17.210 Nicotine dependence, cigarettes, uncomplicated; K21.9 Gastro-esophageal reflux disease without esophagitis; E43 Unspecified severe protein-calorie malnutrition; Z92.3 Personal history of irradiation; Z85.46 Personal history of malignant neoplasm of prostate; Z79.899 Other long term (current) drug therapy; Z86.010 Personal history of colon polyps; Z68.1 Body mass index [BMI] 19.9 or less, adult; M54.5 Low back pain; M54.16 Radiculopathy, lumbar region; N40.1 Benign prostatic hyperplasia with lower urinary tract symptoms; R33.8 Other retention of urine; I89.0 Lymphedema, not elsewhere classified; I87.8 Other specified disorders of veins
CPT/HCPCS: 36415; 72100; 73502; 73700; 73721; 80048; 81001; 82607; 82728; 82746; 83540; 83550; 83735; 85025; 85610; 85730; 93005; 96361; 96372; 96374; 96375; 96376; 97162; 97165; 97530; 97802; 99218; 99285; J7030; A4216; G0378; G8978; G8979; G8987; G8988; J2405

== ENCOUNTER 2020-08-24 19:11 | Emergency (ER) | payer MEDICARE, SELFPAY ==
[2020-08-24 19:12] VITALS: BP 184/68; PULSE 39; RESP 16; TEMP 36.4; O2SAT 100; BMI 20.9
--- NOTE | 2020-08-24 19:27 | RAD_ITS ---
STUDY: X-RAY CHEST REASON FOR EXAM: Male, 75 years old. Bradycardia. Chest pain. TECHNIQUE: Single AP portable view of the chest. COMPARISON: None. FINDINGS: The lungs are clear and expanded. There is no demonstrated pleural abnormality. Normal size heart. Normal mediastinum and chucky. Normal visualized pulmonary arteries. There is atherosclerotic calcification of the aortic arch with tortuosity. Normal visualized thoracic spine. Normal visualized ribs, clavicles, and shoulders. There is no demonstrated abnormality of the visualized soft tissue structures of the upper abdomen. RAD/Chest 1 View (Portable) IMPRESSION: No acute cardiopulmonary disease. Electronically Signed: Jaime Welsh DO at 19:41 EDT Tel [phone], Service support ,
--- NOTE | 2020-08-24 19:27 | EKG12_ITS ---
Test Reason : REPEAT Blood Pressure : / mmHG Vent. Rate : 035 BPM Atrial Rate : 068 BPM P-R Int : 000 ms QRS Dur : 136 ms QT Int : 554 ms P-R-T Axes : 080 065 062 degrees QTc Int : 422 ms Sinus Bradycardia with 2:1 AV Block Right bundle branch block Abnormal ECG Confirmed by KAILEE WILCOX, NINOSKA ([id number]), editor managing newspaper MAYUR ROYAL ([id number]) on 08/27/2020 11:22:49 AM Referred By: RAJ Confirmed By:NINOSKA DUGAN MD
[2020-08-24 19:58] VITALS: BP 183/60; PULSE 36; RESP 18; O2SAT 100
--- NOTE | 2020-08-24 20:11 | EKG12_ITS ---
Test Reason : BRADYCARDIA Blood Pressure : / mmHG Vent. Rate : 061 BPM Atrial Rate : 021 BPM P-R Int : 000 ms QRS Dur : 068 ms QT Int : 390 ms P-R-T Axes : 000 078 262 degrees QTc Int : 392 ms Sinus Bradycardia with 3rd Degree AV Block RBBB Pattern Abnormal ECG Confirmed by KAILEE WILCOX, NINOSKA ([id number]), editor index MAYUR ROYAL ([id number]) on 08/27/2020 11:22:13 AM Referred By: RAJ Confirmed By:NINOSKA DUGAN MD
[2020-08-24 20:26] LABS: Absolute Neutrophil Count 2.3 X10^3/uL (2.0-7.7); Basophil# 0.01 X10^3/uL; Basophil% 0.3 % (0-1); Eosinophil# 0.06 X10^3/uL; Eosinophils% 1.5 % (0-5); Hematocrit 32.9 % (40-54); Hemoglobin 10.3 g/dL (13.0-16.5); Lymphocyte % 30.9 % (19-41); Mean Corp Hgb Conc 31.3 g/dL (32-36); Mean Corpuscular Hgb 27.2 pg (27.0-32.0); Mean Corpuscular Volume 86.8 fL (80-94); Mean Platelet Vol. 10.3 fl (6.2-12.0); Monocyte# 0.35 X10^3/uL; NRBC Flagged by Analyzer 0 % (0-5); Neutrophil # 2.25 X10^3/uL (2.7-7.7); Platelet Count 174 K/mm3 (150-450); RBC Distribution Width CV 16.7 % (11.6-14.6); Red Blood Count 3.79 M/mm3 (4.6-6.2); White Blood Count 3.9 K/mm3 (4.4-11.0)
--- NOTE | 2020-08-24 20:35 | ED.VIS.GEN ---
History of Present Illness Chief Complaint: General Illness Informant: Patient, Family Narrative: Patient presents the emergency department for the evaluation of bradycardia. He tells me that he went to see his doctor yesterday and unexpectedly was told that his heart rate was low and he should see a marriage and family therapist. States he does not really feel any different than normal. He denies any chest pain or shortness of breath. No exertional symptoms. States he is never been told he had anything wrong with his heart. He is treated for hypertension. Today he is tells me that the marriage and family therapist office will try to get a hold of him and family told him to come to emergency. - Past Medical History (1) PAD (peripheral artery disease) Status: Chronic (2) Bradycardia Status: Acute (3) CKD (chronic kidney disease) stage 2, GFR 60-89 ml/min Status: Chronic Comment: Baseline Cr 1.3 (4) HLD (hyperlipidemia) Status: Chronic (5) Prostate cancer Status: Chronic (6) Anemia Status: Chronic Past Medical History - Allergies and Home Meds Allergies/Adverse Reactions: Allergies cephalexin Allergy (Unknown, Verified 08/24/20 19:14) Unknown Sulfa (Sulfonamide Antibiotics) Allergy (Verified 08/24/20 19:14) Rash Primary Care Physician: Toby Roche MD [Primary Care Provider] - Prior records reviewed: Yes Surgical History: - - R colectomy, L inguinal hernia repair, ? Stomach/gastric ulcer surgery. Lives: Alone Smoking Status: Current every day smoker Drugs: None - Family History Maternal Family History: Family History (Last Updated 06/18/18 @ 09:24 by Fanny Briscoe) Father Cancer Sister Cancer Family History: Reports: Cancer Paternal Family History: Family History (Last Updated 06/18/18 @ 09:24 by Fanny Briscoe) Father Cancer Sister Cancer Family History: Reports: Cancer Review of Systems General: Denies: Chills, Fever, Sweats Eyes: Denies: Visual changes - bilaterally, Diplopia ENT: Denies: Rhinorrhea, Sore throat Cardiovascular: Denies: Chest pain, Palpitations Respiratory: Denies: Dyspnea, Cough, Dyspnea on exertion Gastrointestinal: Denies: Abdominal pain, Nausea, Vomiting, Diarrhea, Melena, Hematochezia Genitourinary: Denies: Dysuria, Hematuria, Frequency Musculoskeletal: Denies: Back pain, Extremity Pain Skin: Denies: Rash, Wounds Neurological: Denies: Headache, Weakness, Numbness Physical Exam Vital Signs/Narrative: Vital Signs Temp Pulse Resp BP Pulse Ox 08/24/20 19:58 36 L 18 183/60 H 100 08/24/20 19:12 97.5 F L 39 L 16 184/68 H 100 Inital Vital Signs reviewed: Yes General: Well nourished, Well developed, No Acute Distress Head: Normocephalic, Atraumatic Eyes: Perrl, EOMI ENT: Moist mucous membranes, No rhinorrhea Neck: Supple, Nontender Cardiovascular: Regular rate, No murmurs, Bradycardia Respiratory: No distress, CTA bilaterally, Chest nontender Abdomen: Soft, Nontender, Nondistended, Normal bowel sounds Back: Nontender, Normal Inspection Extremities: Nontender, No edema Skin: Normal color, No rash Neurological: Alert, Oriented x3, Cranial nerves II-XII grossly intact, Normal Strength, Normal Sensation Psychological: Normal affect, Normal Mood Diagnostic/Tx/Re-eval Clinical Impression(s) from Imaging Studies Chest X-Ray 08/24/20 19:27 IMPRESSION: No acute cardiopulmonary disease. Electronically Signed: Jaime Welsh DO at 19:41 EDT Tel [phone], Service support , Laboratory Last Values WBC 3.9 K/mm3 (4.4-11.0) L 08/24/20 20:05 RBC 3.79 M/mm3 (4.6-6.2) L 08/24/20 20:05 Hgb 10.3 g/dL (13.0-16.5) L 08/24/20 20:05 Hct 32.9 % (40-54) L 08/24/20 20:05 MCV 86.8 fL (80-94) 08/24/20 20:05 MCH 27.2 pg (27.0-32.0) 08/24/20 20:05 MCHC 31.3 g/dL (32-36) L 08/24/20 20:05 RDW Std Deviation 53.0 fl (35.1-43.9) H 08/24/20 20:05 RDW Coeff of Cirilo 16.7 % (11.6-14.6) H 08/24/20 20:05 Plt Count 174 K/mm3 (150-450) 08/24/20 20:05 MPV 10.3 fl (6.2-12.0) 08/24/20 20:05 Immature Gran % (Auto) 0.300 % (0.0-0.9) 08/24/20 20:05 Neut % (Auto) 58.0 % (47-70) 08/24/20 20:05 Lymph % (Auto) 30.9 % (19-41) 08/24/20 20:05 Mccurtain % (Auto) 9.0 % (0-10) 08/24/20 20:05 Eos % (Auto) 1.5 % (0-5) 08/24/20 20:05 Baso % (Auto) 0.3 % (0-1) 08/24/20 20:05 Absolute Neuts (auto) 2.3 X10^3/uL (2.0-7.7) 08/24/20 20:05 Absolute Lymphs (auto) 1.20 X10^3/uL (0.83-4.51) 08/24/20 20:05 Nucleated RBC % 0 % (0-5) 08/24/20 20:05 Sodium 142 mmol/L (136-145) 08/24/20 20:05 Potassium 3.6 mmol/L (3.5-5.1) 08/24/20 20:05 Chloride 112 mmol/L (98-107) H 08/24/20 20:05 Carbon Dioxide 25.0 mmol/L (21.0-32.0) 08/24/20 20:05 Anion Gap 5 (5-15) 08/24/20 20:05 BUN 25 mg/dL (7-18) H 08/24/20 20:05 Creatinine 1.53 mg/dL (0.70-1.30) H 08/24/20 20:05 Estim Creat Clear Calc 47.20 ml/min 08/24/20 20:05 Est GFR (MDRD) Af Amer 57 mL/min (>60) L 08/24/20 20:05 Est GFR (MDRD) Non-Af 47 mL/min (>60) L 08/24/20 20:05 BUN/Creatinine Ratio 16.3 RATIO (10-20) 08/24/20 20:05 Glucose 77 mg/dL (74-106) 08/24/20 20:05 Calcium 8.2 mg/dL (8.5-10.1) L 08/24/20 20:05 Magnesium 2.1 mg/dL (1.6-2.6) 08/24/20 20:05 Troponin I 0.015 ng/mL (<0.045) 08/24/20 20:05 - EKG Initial EKG Interpretation: - - Initial EKG shows a right bundle branch block pattern with findings consistent with third-degree block. Follow-up EKG Interpretation: - - Medical Decision Making EKGs reviewed by myself as well as Dr. Mathis from cardiology. Recommendation is to transfer to tertiary care for pacemaker placement as we do not have the availability to do it at this time. Patient was accepted to [facility]. Family was updated multiple times during their stay and have been appreciative of his care. He remains hemodynamically stable. - Critical Care Time Critical care time (excluding procedures): 30-74 minutes - 35 min, Discussing w/Patient &/or Family/[employer], Discussing w/Consultants, Arranging Admission or Transfer, Performing Direct Patient Care at Bedside ED Disposition - Plan for ED Patient: Disposition: [facility] Diagnosis: Third degree heart block Referrals: Tboy Roche MD [Primary Care Provider] -
[2020-08-24 20:39] LABS: Anion Gap 5 (5-15); BUN 25 mg/dL (7-18); BUN/Creat Ratio 16.3 RATIO (10-20); Calcium,Total 8.2 mg/dL (8.5-10.1); Chloride 112 mmol/L (98-107); Creatinine, Serum 1.53 mg/dL (0.70-1.30); EST Glomerular Filtration Rate 47 mL/min (>60); Est Glom Filt Rate - Afr Amer 57 mL/min (>60); Glucose 77 mg/dL (74-106); Potassium 3.6 mmol/L (3.5-5.1); Sodium Level 142 mmol/L (136-145)
[2020-08-24 21:08] LABS: Magnesium 2.1 mg/dL (1.6-2.6)
[2020-08-24 23:02] VITALS: BP 181/52; PULSE 47; RESP 17; O2SAT 98
[2020-08-24 23:39] VITALS: PULSE 34; RESP 16; O2SAT 100
== END 2020-08-24 23:54 | disposition short-term general hospital (02) ==
LOC: ED 21:07
PROVIDERS: Emergency Provider Emergency Medicine; PCP Internal Medicine
DX: I44.2 Atrioventricular block, complete (principal); I45.10 Unspecified right bundle-branch block; I12.9 Hypertensive chronic kidney disease with stage 1 through stage 4 chronic kidney disease, or unspecified chronic kidney disease; N18.2 Chronic kidney disease, stage 2 (mild); E78.5 Hyperlipidemia, unspecified; I73.9 Peripheral vascular disease, unspecified; Z86.2 Personal history of diseases of the blood and blood-forming organs and certain disorders involving the immune mechanism; Z85.46 Personal history of malignant neoplasm of prostate; Z79.899 Other long term (current) drug therapy; F17.200 Nicotine dependence, unspecified, uncomplicated
CPT/HCPCS: 71045; 80048; 83735; 84484; 85025; 93005; 99285; A4216

== ENCOUNTER 2020-12-28 20:21 | Emergency (ER) | payer MEDICARE, SELFPAY ==
[2020-12-28 20:22] VITALS: BP 150/71; PULSE 65; RESP 16; TEMP 36.2; O2SAT 99; BMI 21.9
--- NOTE | 2020-12-28 20:26 | ED.DCSUM_ITS ---
History of Present Illness Chief Complaint: Med Refill Informant: Patient Onset: - - Needs antihypertensive and dysrhythmic medication refilled Context: - - Not applicable Timing: - - Not applicable Quality: Prescription refill Worsened by: Not applicable Relieved by: Not applicable Associated Symptoms: None Narrative: Elderly male who presents for prescription refill. He denies any fever, chills night sweats. He denies headache, ocular visual auditory symptoms. He denies chest pain or shortness of breath. He denies nausea vomiting. He denies paresthesia, anesthesia or motor weakness. Recent Illness/Hospitalization: No - Past Medical History (1) CKD (chronic kidney disease) stage 2, GFR 60-89 ml/min Status: Chronic Comment: Baseline Cr 1.3 (2) HLD (hyperlipidemia) Status: Chronic (3) PAD (peripheral artery disease) Status: Chronic (4) Prostate cancer Status: Chronic (5) Tobacco use Status: Chronic Past Medical History - Allergies and Home Meds Allergies/Adverse Reactions: Allergies cephalexin Allergy (Unknown, Verified 12/28/20 20:24) Unknown Sulfa (Sulfonamide Antibiotics) Allergy (Verified 12/28/20 20:24) Rash Primary Care Physician: Toby Roche MD [Primary Care Provider] - Prior records reviewed: Yes Surgical History: - - R colectomy, L inguinal hernia repair, ? Stomach/gastric ulcer surgery. Lives: Alone Smoking Status: Current every day smoker Alcohol: Rare Drugs: None - Family History Maternal Family History: Family History (Last Updated 06/18/18 @ 09:24 by Fanny Briscoe) Father Cancer Sister Cancer Family History: Reports: Cancer Paternal Family History: Family History (Last Updated 06/18/18 @ 09:24 by Fanny Briscoe) Father Cancer Sister Cancer Family History: Reports: Cancer Review of Systems General: Denies: Chills, Fever, Malaise, Subjective, Sweats Eyes: Denies: Visual changes - bilaterally, Blurred Vision - bilaterally Cardiovascular: Denies: Chest pain, Palpitations Respiratory: Denies: Dyspnea, Cough, Dyspnea on exertion Gastrointestinal: Denies: Nausea, Vomiting, Diarrhea Skin: Denies: Rash, Wounds Neurological: Denies: Weakness, Parasthesia Hematologic: Denies: Easy bruising, Easy bleeding Physical Exam Vital Signs/Narrative: Vital Signs Temp Pulse Resp BP Pulse Ox 12/28/20 20:22 97.2 F L 65 16 150/71 H 99 Inital Vital Signs reviewed: Yes General: Well nourished, Well developed, No Acute Distress Head: Normocephalic, Atraumatic Eyes: Perrl, EOMI Cardiovascular: Regular rate, Regular rhythm Respiratory: No distress Skin: Normal color, No rash Neurological: Alert, Oriented x3, Cranial nerves II-XII grossly intact, Normal Strength, Normal Sensation Psychological: Normal affect, Normal Mood Diagnostic/Tx/Re-eval - Medical Decision Making [facility] for for prescription refill. Lisinopril 40 mg tab 1 daily, carvedilol 6.25 mg 1 tablet twice a day and hydrochlorothiazide 25 mg tab 1 daily ED Disposition - Plan for ED Patient: Disposition: Home or Assisted Living Diagnosis: Prescription refill, Encounter for medical screening examination Prescriptions: Carvedilol [Coreg (Beta Diana)] 6.25 mg PO BID #60 tab Transmission Status: Pending to [facility] #30 Hydrochlorothiazide [Hctz] 25 mg PO DAILY #30 tab Transmission Status: Pending to [facility] #30 Lisinopril 40 mg PO DAILY #30 tab Transmission Status: Pending to [facility] #30 Referrals: Toby Roche MD [Primary Care Provider] - 1-2 Weeks
== END 2020-12-28 20:36 | disposition home or self-care (01) ==
LOC: ED 20:34
PROVIDERS: Emergency Provider Emergency Medicine; PCP Internal Medicine
DX: Z76.0 Encounter for issue of repeat prescription (principal); E78.5 Hyperlipidemia, unspecified; I73.9 Peripheral vascular disease, unspecified; N18.2 Chronic kidney disease, stage 2 (mild); Z85.46 Personal history of malignant neoplasm of prostate; Z79.899 Other long term (current) drug therapy; F17.200 Nicotine dependence, unspecified, uncomplicated
CPT/HCPCS: 99282

== ENCOUNTER 2021-03-17 16:43 | Emergency (ER) | payer MEDICARE, SELFPAY ==
[2021-03-17 16:44] VITALS: BP 102/56; PULSE 60; RESP 18; TEMP 36.5; O2SAT 97; BMI 21.9
--- NOTE | 2021-03-17 17:15 | EKG12_ITS ---
Test Reason : SYNCOPE Blood Pressure : / mmHG Vent. Rate : 060 BPM Atrial Rate : 060 BPM P-R Int : 244 ms QRS Dur : 156 ms QT Int : 500 ms P-R-T Axes : 034 -61 088 degrees QTc Int : 500 ms AV dual-paced rhythm with prolonged AV conduction Abnormal ECG Confirmed by CHRISTOPHE WILCOX, JOSIAS ([id number]), copy editor MAYUR ROYAL ([id number]) on 03/19/2021 9:10:51 AM Referred By: GUANAKO Confirmed By:JOSIAS SAEED MD
--- NOTE | 2021-03-17 17:16 | EDS_ITS ---
HPI History of Present Illness Chief Complaint: Syncope Informant: patient and family Onset/Context/Timing Onset: Today Narrative Narrative: Patient presents after a syncopal episode. Patient apparently been out cutting his yard. He came in and sat in a chair to get his haircut and fell out. Family member states he was told they splashed some water on his face and he came around. Patient does admit to not eating today. He recently had a pacemaker placed secondary to bradycardia. He denies having chest pain or palpitations prior to this episode. At this time he feels his normal self. [facility] Medical History Anemia Bilateral lower extremity edema Bradycardia CKD (chronic kidney disease) stage 2, GFR 60-89 ml/min Colon polyps Essential hypertension Hip pain, acute HLD (hyperlipidemia) PAD (peripheral artery disease) Prostate cancer Right hip pain Tobacco use Urinary retention Home Medications fluticasone propionate 2 spray NASAL DAILY 06/15/17 [History Last Taken 04/23/18 23:00] acetaminophen 500 mg PO Q4H PRN #1 tab 04/27/18 [Rx Last Taken Unknown] food supplemt, lactose-reduced 120 ml PO 4X/DAY #28 liquid 04/27/18 [Rx Last Taken Unknown] ibuprofen 400 mg PO Q6H PRN #1 tab 04/27/18 [Rx Last Taken Unknown] amlodipine 10 mg tablet 10 mg PO DAILY tab 08/24/20 [History Last Taken Unknown] doxazosin 4 mg tablet 4 mg PO QHS 08/24/20 [History Last Taken Unknown] hydroxyzine HCl 25 mg tablet 25 mg PO Q8H PRN tab 08/24/20 [History Last Taken Unknown] lisinopril 20 mg-hydrochlorothiazide 12.5 mg tablet 1 tab PO DAILY 08/24/20 [History Last Taken Unknown] montelukast 10 mg tablet 10 mg PO QHS PRN 08/24/20 [History Last Taken Unknown] triamcinolone acetonide 0.1 % topical cream applic TOPICAL 08/24/20 [History Last Taken Unknown] carvedilol 6.25 mg PO BID #60 tab 12/28/20 [Rx Last Taken Unknown] hydrochlorothiazide 25 mg PO DAILY #30 tab 12/28/20 [Rx Last Taken Unknown] lisinopril 40 mg PO DAILY #30 tab 12/28/20 [Rx Last Taken Unknown] Allergy/AdvReac Type Severity Reaction Status Date / Time cephalexin Allergy Unknown Unknown Verified 03/17/21 16:49 Sulfa (Sulfonamide Allergy Rash Verified 03/17/21 16:49 Antibiotics) Family History Father Cancer esophagus Sister Cancer liver or stomach Surgical History History of colonoscopy (01/15/17) History of cystoscopy (03/06/16) History of incision and drainage (~11/2006) History of inguinal hernia repair (~1979) History of ulcer surgery (~1986) Social History Smoking Status: Current every day smoker substance use type: does not use ROS ROS ED Constitutional Constitutional ED: Denies chills or fever(s) Eyes Eyes: Denies change in vision ENT ENT ED: Denies sore throat Cardiovascular Cardiovascular: Denies chest pain Respiratory/Chest Respiratory/Chest: Denies cough or dyspnea Gastrointestinal Gastrointestinal: Denies abdominal pain, diarrhea, nausea or vomiting Genitourinary Genitourinary ED: Denies dysuria Musculoskeletal Musculoskeletal: Denies back pain Integumentary Denies rash Neurologic Neurologic: Denies headache(s) or weakness Psychiatric Psychiatric: Denies anxiety or depression Endocrine Endocrinology: Denies polydipsia or polyuria Allergic/Immunologic Allergic/Immunologic ED: Denies urticaria EXAM Physical Exam Const Vital Signs: 03/17/21 16:44 Temperature 97.7 F L Temperature Source Oral Pulse Rate 60 Respiratory Rate 18 Respiratory Effort Normal Non-Labored Respiratory Pattern Normal Blood Pressure 102/56 L Blood Pressure Mean 71 Pulse Ox 97 Oxygen Delivery Method Room Air Positive well nourished and well developed General Appearance ED: well developed HEENT Reports normocephalic and head/scalp atraumatic Eyes PERRL and EOMs intact bilaterally Neck supple Chest Wall inspection of chest normal and palpation of chest normal Resp normal respiratory effort and clear to auscultation bilaterally Cardio regular rate and regular rhythm GI normal to inspection, nondistended, normoactive bowel sounds Palpation: soft Back/Spine no CVA tenderness Extremity normal to inspection Neuro oriented x3 and no sensory deficits noted Sensorium / Orientation: alert Motor Exam: strength 5/5 throughout Psych mental status grossly normal Skin no rashes or lesions noted MDM MDM MDM Narrative Medical decision making narrative: Patient was given IV fluids. EKG and labs are ordered. He is kept on panel monitor throughout his ED stay. Lab Data Attestation: I reviewed the patient's lab results. Labs: Laboratory Results - last 24 hr 03/17/21 03/17/21 03/17/21 16:55 16:55 17:24 WBC 4.0 L RBC 3.83 L Hgb 10.7 L Hct 33.5 L MCV 87.5 MCH 27.9 MCHC 31.9 L RDW Std Deviation 48.0 H RDW Coeff of Cirilo 15.0 H Plt Count 150 MPV 10.5 Immature Gran % (Auto) 0.000 Neut % (Auto) 54.5 Lymph % (Auto) 33.4 Cameron % (Auto) 8.8 Eos % (Auto) 3.0 Baso % (Auto) 0.3 Absolute Neuts (auto) 2.2 Absolute Lymphs (auto) 1.33 Nucleated RBC % 0 Sodium 140 Potassium 4.5 Chloride 113 H Carbon Dioxide 22.0 Anion Gap 5 BUN 39 H Creatinine 1.78 H Estim Creat Clear Calc 42.65 Est GFR (MDRD) Af Amer 48 L Est GFR (MDRD) Non-Af 40 L BUN/Creatinine Ratio 21.9 H Glucose 123 H Calcium 8.3 L POC Glucose 107 Radiography Chest X-Ray - ED: 1 View, Read by ED Physician and - (Chronic changes. Pacer lines intact.) Diagnostic Testing: Radiology Impression Chest X-Ray 03/17/21 17:20 IMPRESSION: Normal x-ray examination of the chest. Electronically Signed: Mo Anderson DO at 18:30 EDT Tel [phone], Service support , EKG Initial EKG: Attestation: I personally reviewed and interpreted this EKG as follows: Interpretation: Paced (AV paced at 60 bpm. No obvious ischemia.) Treatment and Re-Evaluation Comments:: I was able to review the squad report. They state the patient systolic blood pressure was initially 90 on their arrival. They started IV fluids. At this time on repeat evaluation patient has been able to eat. His systolic blood pressure is currently 140. I discussed with patient and family at bedside I believe that he was outside mowing, became warm and this caused vasodilation. When he went to sit down for his haircut his blood pressure dropped and he had a brief syncopal episode. At this time patient be discharged home with family. Return instructions are provided. Discharge Plan Triage Chief Complaint: Syncope ED Provider: Zuleima Reyes Dx/Rx/DC Orders Clinical Impression: Syncope Instructions: ED Hypotension, Orthostatic Prescriptions: No Action amlodipine 10 mg tablet 10 mg PO DAILY RF: 0 montelukast 10 mg tablet 10 mg PO QHS PRN (Reason: Allergies) RF: 0 doxazosin 4 mg tablet 4 mg PO QHS RF: 0 lisinopril-hydrochlorothiazide 20-12.5 mg tablet 1 tab PO DAILY RF: 0 triamcinolone acetonide 0.1 % cream TOPICAL RF: 0 fluticasone propionate 1 SPRAY spray,suspension 2 spray NASAL DAILY RF: 0 acetaminophen 500 MG tablet 500 mg PO Q4H PRN (Reason: Pain) Qty: 1 RF: 0 ibuprofen 400 MG tablet 400 mg PO Q6H PRN (Reason: Pain) Qty: 1 RF: 0 food supplemt, lactose-reduced 120 ML liquid 120 ml PO 4X/DAY Qty: 28 RF: 0 hydroxyzine HCl 25 mg tablet 25 mg PO Q8H PRN (Reason: Itching) RF: 0 carvedilol 6.25 MG tablet 6.25 mg PO BID Qty: 60 RF: 0 hydrochlorothiazide 25 MG tablet 25 mg PO DAILY Qty: 30 RF: 0 lisinopril 40 MG tablet 40 mg PO DAILY Qty: 30 RF: 0 Primary Care Provider: Toby Roche Referrals: Toby Roche MD [Primary Care Provider] - 5-7 Days Disposition Disposition: Home, self care
--- NOTE | 2021-03-17 17:20 | RAD_ITS ---
STUDY: X-RAY CHEST REASON FOR EXAM: Male, 75 years old. Syncope TECHNIQUE: Frontal view COMPARISON: None. FINDINGS: The lungs are clear and expanded. There is no demonstrated pleural abnormality. Normal size heart. Normal mediastinum and chucky. Normal visualized pulmonary arteries. Normal visualized aortic arch and descending thoracic aorta. Normal visualized thoracic spine. Normal visualized ribs, clavicles, and shoulders. There is no demonstrated abnormality of the visualized soft tissue structures of the upper abdomen. RAD/Chest 1 View (Portable) IMPRESSION: Normal x-ray examination of the chest. Electronically Signed: Mo Anderson DO at 18:30 EDT Tel [phone], Service support ,
[2021-03-17 17:29] LABS: Absolute Lymphocyte Count 1.33 X10^3/uL (0.83-4.51); Absolute Neutrophil Count 2.2 X10^3/uL (2.0-7.7); Basophil# 0.01 X10^3/uL; Basophil% 0.3 % (0-1); Eosinophil# 0.12 X10^3/uL; Hematocrit 33.5 % (40-54); Hemoglobin 10.7 g/dL (13.0-16.5); Lymphocyte # 1.33 X10^3/ul (0.83-4.51); Lymphocyte % 33.4 % (19-41); Mean Corp Hgb Conc 31.9 g/dL (32-36); Mean Corpuscular Hgb 27.9 pg (27.0-32.0); Mean Corpuscular Volume 87.5 fL (80-94); Mean Platelet Vol. 10.5 fl (6.2-12.0); Monocyte# 0.35 X10^3/uL; Monocyte% 8.8 % (0-10); NRBC Flagged by Analyzer 0 % (0-5); Neutrophil # 2.17 X10^3/uL (2.7-7.7); Neutrophil % 54.5 % (47-70); Platelet Count 150 K/mm3 (150-450); Red Blood Count 3.83 M/mm3 (4.6-6.2)
[2021-03-17 17:31] LABS: Bedside Glucose 107 mg/dL (70-110)
[2021-03-17 17:38] LABS: Anion Gap 5 (5-15); BUN 39 mg/dL (7-18); BUN/Creat Ratio 21.9 RATIO (10-20); Calcium,Total 8.3 mg/dL (8.5-10.1); Chloride 113 mmol/L (98-107); Creatinine, Serum 1.78 mg/dL (0.70-1.30); EST Glomerular Filtration Rate 40 mL/min (>60); Est Glom Filt Rate - Afr Amer 48 mL/min (>60); Estimated Creatinine Clearance 42.65 ml/min; Glucose 123 mg/dL (74-106); Potassium 4.5 mmol/L (3.5-5.1); Sodium Level 140 mmol/L (136-145)
[2021-03-17 19:04] VITALS: BP 130/57; PULSE 60; RESP 23; O2SAT 97
== END 2021-03-17 19:05 | disposition home or self-care (01) ==
PROVIDERS: Emergency Provider Emergency Medicine; PCP Internal Medicine
DX: R55 Syncope and collapse (principal); R00.1 Bradycardia, unspecified; I12.9 Hypertensive chronic kidney disease with stage 1 through stage 4 chronic kidney disease, or unspecified chronic kidney disease; N18.2 Chronic kidney disease, stage 2 (mild); E78.5 Hyperlipidemia, unspecified; I73.9 Peripheral vascular disease, unspecified; Z86.2 Personal history of diseases of the blood and blood-forming organs and certain disorders involving the immune mechanism; Z86.010 Personal history of colon polyps; Z85.46 Personal history of malignant neoplasm of prostate; Z95.0 Presence of cardiac pacemaker; Z79.899 Other long term (current) drug therapy; F17.200 Nicotine dependence, unspecified, uncomplicated
CPT/HCPCS: 71045; 80048; 82962; 85025; 93005; 96360; 96361; 99285; A4216